=== PATIENT | male | born 1945 | race Caucasian/White ===

== ENCOUNTER → 2018-01-20 09:32 | Outpatient (CLI) | payer MEDICARE, SELFPAY | PROVIDERS: Family Provider Preventive Medicine Occupational Medicine; PCP Preventive Medicine Occupational Medicine; Visit Provider Nurse Practitioner Adult Health | DX: R97.20 Elevated prostate specific antigen [PSA] (principal) | CPT/HCPCS: 36415; 84153 ==

== ENCOUNTER → 2021-02-04 14:16 | Outpatient (CLI) | payer MEDICARE, SELFPAY | PROVIDERS: PCP Preventive Medicine Occupational Medicine; Referring Provider Urology; Visit Provider Urology | DX: R97.20 Elevated prostate specific antigen [PSA] (principal) | CPT/HCPCS: 36415; 84153 ==

== ENCOUNTER 2021-03-26 05:52 | Day surgery (SDC) | payer MEDICARE, SELFPAY ==
--- NOTE | 2021-03-19 12:00 | EKG12_ITS ---
Test Reason : PRE OP Blood Pressure : / mmHG Vent. Rate : 060 BPM Atrial Rate : 060 BPM P-R Int : 170 ms QRS Dur : 076 ms QT Int : 408 ms P-R-T Axes : 037 038 028 degrees QTc Int : 408 ms Normal sinus rhythm Normal ECG Confirmed by MANINDER AGOSTO, KLEBER ([id number]), script editor SUMA DANIELS ([id number]) on 03/20/2021 9:25:07 AM Referred By: David Ramos Confirmed By:KLEBER DICKENS MD
[2021-03-19 14:27] LABS: Anion Gap 5 (5-15); BUN 18 mg/dL (7-18); BUN/Creat Ratio 16.7 RATIO (10-20); Calcium,Total 10.4 mg/dL (8.5-10.1); Chloride 112 mmol/L (98-107); Creatinine, Serum 1.08 mg/dL (0.70-1.30); EST Glomerular Filtration Rate 71 mL/min (>60); Est Glom Filt Rate - Afr Amer 86 mL/min (>60); Glucose 107 mg/dL (74-106); Potassium 3.6 mmol/L (3.5-5.1); Sodium Level 143 mmol/L (136-145)
[2021-03-26] VITALS (14 sets, daily range): BP systolic 103–145; BP diastolic 48–89; PULSE 56–67; RESP 10–18; TEMP 36.2–37.4; O2SAT 85–97; BMI 34.7
--- NOTE | 2021-03-26 | IMM_PTH ---
PATIENT: GARRY MONTIEL LOC: [facility] – [place] U#:[id number] AGE/SX: 76/M ROOM: RE03/26/[address]: Dr. David Ramos MD : 1945 BED: DIS: 03/27/2021 SPEC #: [id number] RECD: 03/28/21 13:37 STATUS: DOUG REQ #: [id number] ANNA: 03/26/21 00:[address]: David Ramos DEPT: IMMUNOHISTOCHEMISTRY RECD BY: Hamida Garzon ENTERED: 03/28/21 13:39 SP TYPE: IMMUNO OTHR DR: Dr. Mich Zacarias DO Tissues: Prostate, NOS Procedures: 34BE12 (add) P40 (add) 34BE12 (initial) PHYSICIAN & INSTITUTION [place] [id number] SPECIMEN INFORMATION: Tissue Source: Prostate tissue Clinical Info: Benign prostate hyperplasia, bladder carcinoma Specimen Number: [id number], 3 and 9 CPT code: 96732 METHODOLOGY: Deparaffinized sections of prefer/formalin-fixed tissue or PAP/DQ stained slides are incubated with monoclonal/polyclonal antibodies/oligonucleotide probes. Localization is made via biotin free immunoperoxidase method. Appropriate controls are performed and reacted as expected. Results on target cell population are indicated in the following table: RESULTS: ANTIBODY / CLONE RESULT Block 3 P40 (BC28) positive 34BE12 (34BE12) positive Filemon 9 P40 (BC28) positive 34BE12 (34BE12) positive These tests were developed and their performance characteristics determined by [facility]. They may not have been cleared or approved by the U.S. Food and Drug Administration. The FDA has determined that such clearance or approval is not necessary. The above immunohistochemical/dualISH markers are ordered and reviewed by the Pathologist. INTERPRETATION: Prostate tissue, TUR: -Benign prostatic hyperplasia -Negative for malignancy SJ:gabi 03/31/21
[2021-03-26] MEDS: Lactated Ringers 1,000 ML 15 ML IV ×2 (06:20→10:35)
[2021-03-26] MEDS: Ciprofloxacin 400 MG/200 ML BAG 200 MG IV (06:38)
--- NOTE | 2021-03-26 07:30 | PROS_PTH ---
PATIENT: GARRY MONTIEL LOC: [facility] – [place] U#:[id number] AGE/SX: 76/M ROOM: RE03/26/[address]: Dr. David Ramos MD : 1945 BED: DIS: 03/27/2021 SPEC #: [id number] RECD: 03/26/21 10:28 STATUS: DOUG CRUZ #: [id number] ANNA: 03/26/21 07:[address]: David Ramos DEPT: SURGICAL PATHOLOGY RECD BY: Raiza Ramirez ENTERED: 03/26/21 10:46 SP TYPE: TURP OTHR DR: Dr. Mich Zacarias, DO Tissues: Prostate, NOS Procedures: Surgery Specimen Level IV HEADER OPERATION: Cystoscopy, transurethral resection of the prostate PRE-OP DIAGNOSIS: Benign prostate hyperplasia, bladder calculus TISSUE SUBMITTED: Prostate tissue and bladder stone MICROSCOPIC DIAGNOSIS Prostate tissue and bladder stone, TUR: Benign prostatic hyperplasia, glandular and stromal type. Focal chronic inflammation and basal cell hyperplasia. Fragments of stones (gross only). See comment. Jass 03/31/21 COMMENT Immunohistochemistry ([id number]) supports the above diagnosis. MICROSCOPIC DESCRIPTION Slides are reviewed. GROSS DESCRIPTION Received is one container labeled with the patient's name and designated prostate tissue. The specimen consists of multiple irregular fragments of pink-hinkle, rubbery, soft tissue that in aggregate weigh 20.7 gm and measure in aggregate 7.0 x 7.0 x 3.0 cm. A few fragments of stones are also noted. Plasma Table Operator tissue is submitted in ten cassettes. /JASS:gabi 03/26/21 TC:5 [facility]: [id number]
[2021-03-26] MEDS: Lactated Ringers 1,000 ML 100 ML IV (08:30)
--- NOTE | 2021-03-26 09:37 | PCM.HP.STD ---
HPI - General HPI Narrative GARRY MONTIEL, is a 76 M who presents with large bladder stones and bph with obsruction, plan today to laser stones and do a TURP FORMERLY [facility], [facility] Medical History (Updated 03/19/21 @ 10:24 by Cori Kingsley) Ambulates with cane Bladder disease Gastric reflux Gout High cholesterol Hypertension Leg cramps Non-smoker Prostate disease Wears dentures Wears glasses Home Medications amlodipine 10 mg PO DAILY 03/19/21 [History Last Taken Unknown] atorvastatin 20 mg PO DAILY 03/19/21 [History Last Taken Unknown] losartan 100 mg PO DAILY 03/19/21 [History Last Taken Unknown] metoprolol succinate 100 mg PO BID 03/19/21 [History Last Taken Unknown] omeprazole 40 mg PO DAILY 03/19/21 [History Last Taken Unknown] ciprofloxacin HCl [Cipro] 500 mg PO BID #14 tab 03/26/21 [Rx Last Taken Unknown] Allergy/AdvReac Type Severity Reaction Status Date / Time Penicillins [PCN] Allergy Other Verified 03/19/21 10:11 Surgical History (Updated 03/19/21 @ 10:24 by Cori Kingsley) History of back surgery History of knee surgery Social History Smoking Status: Never smoker Vital Signs Vital Signs Vital Signs: 03/26/21 06:34 Temperature 99.3 F H Temperature Source Temporal Pulse Rate 67 Respiratory Rate 16 Respiratory Pattern Normal Blood Pressure 145/89 H Blood Pressure Mean 107 Blood Pressure Source Monitor Blood Pressure Position Semi-Fowlers Blood Pressure Location Right Arm Pulse Ox 93 Oxygen Delivery Method Room Air Weight Weight: 100.7 kg Body Mass Index (BMI) 34.7 Results Lab / Micro Data Result Diagrams: 03/19/21 12:40 03/19/21 12:40
--- NOTE | 2021-03-26 09:37 | PCM.DC ---
Discharge Instructions Diet Discharge Diet: No restrictions Activity Discharge Activity: Return to Normal Activity and May Not Drive (while taking narcotic pain medications.) Dressing / Incision Call your doctor if you observe: Fever of 101 or Higher Follow Up Care Please Follow Up With: David Ramos MD When: Call [phone] for an appointment Test Results: Test results from this visit will be discussed in further detail at your follow-up appointment, if applicable. Discharge Plan Admission Primary Reason for Your Visit: laser bladder stones and TURP Attending Provider: David Ramos Primary Care Provider: Mich Zacarias Instructions Patient Instructions: TURP Home Recovery Discharge Orders/Prescriptions Prescriptions: New ciprofloxacin HCl [Cipro] 500 mg tablet 500 mg PO BID Qty: 14 RF: 0 Continued atorvastatin 20 mg Tablet 20 mg PO DAILY RF: 0 metoprolol succinate 100 mg Tablet Extended Release 24 Hr 100 mg PO BID RF: 0 omeprazole 40 mg Capsule,Delayed Release(Dr/Ec) 40 mg PO DAILY RF: 0 amlodipine 10 mg Tablet 10 mg PO DAILY RF: 0 losartan 100 mg Tablet 100 mg PO DAILY RF: 0 Discontinued oxybutynin chloride 5 mg Tablet 5 mg PO DAILY RF: 0 aspirin 81 mg Capsule 81 mg PO DAILY RF: 0 Other Ambulatory Orders: 12 Lead EKG (Routine) Timeframe: [id number] Location: None Selected Ordered By: Dr. Jack Mcnally Referrals / Follow Up: David Ramos MD [STAFF PHYSICIAN] - Mich Zacarias DO [Primary Care Provider] - Disposition Disposition (needs filled in before D/C Order can be placed): Home, Self Care
--- NOTE | 2021-03-26 09:38 | OP.PCM_ITS ---
Report of Operation Date of Procedure: 03/26/21 Pre-Operative Diagnosis: Large bladder stones and BPH with obstruction Post-Operative Diagnosis: Same Surgery/Procedure Performed:: Cystolitholapaxy and removal of large bladder stones greater than 2.5 cm in size and transurethral resection of the prostate9 Description of Surgical Findings:: In the preoperative setting I discussed with the patient how the surgery would be done with expect afterwards. We discussed how a prostate resection is done and we discussed the risk of the surgery including, bleeding, infection, retrograde ejaculation, changes with ejaculation or intercourse,. We discussed the possibility that the resection of the prostate may not alleviate his urinary symptoms. We discussed the small risk of developing scar tissue along the urethral channel and strictures. We also discussed the chance of the prostate could grow back and he may need further surgery or treatment in the future for prostate problems. Patient was taken back to the operating room, timeout procedure was performed, he was identified and marked and placed on the operating room table. He underwent general anesthesia.The urethra and genitals were prepped and draped in usual sterile fashion. Went into the bladder using a 24 [place] cystoscope. We used the laser bridge through the scope for continuous irrigation. Then using the laser bridge we introduced a laser fiber into the bladder and the stone in the bladder was trapped against the back wall. The stone measured larger than 2,5cm in total size. The stone was then lasered using laser lithotripsy the small little pieces all the pieces were evacuated on the bladder. After all the stones were removed then the scope was removed there was minimal bleeding. I then went back in to the bladder with the visual obturator with a resectoscope. Once inside the bladder identified the right and left ureteral orifice. I then identified the prostate and the anatomy of the prostate. I marked out the area of the sphincter and the verumontanum was identified. I then proceeded with the prostate resection first resected the median lobe. And then resected the right lobe of the prostate. Then to resect the left lobe of the prostate. I then resected the apical tissue of the prostate. This was a complete resection of all obstructive tissue to improve voiding and relieve obstruction. I then made sure that there was no injury to the sphincter or the verumontanum was still intact. At the end of the resection all the chips were Ellik out of the bladder. I then identified the left and right ureteral orifice and these were confirmed to be in good position and effluxing and not injured. The resectoscope was removed, a 22 [place]se catheter was placed into the bladder on continuous irrigation. And the urine was fairly light pink color and draining normally. He was taken back to the PACU in good condition. CPT 57257 CPT 18925 Surgeon: beto Type of Anesthesia: General Drains: 22fr [address] Admit VTE Documentation VTE Present on Admission: No VTE Mechan Device Prophylaxis: SCD's VTE Pharm Prophylaxis ordered?: No
--- NOTE | 2021-03-26 18:55 | PCS.PANDOC ---
PANDEMIC DOCUMENTATION INITIATED: Date: 12/16/2020 Time: 190
[2021-03-26] MEDS: Metoprolol(XL)Succ 100 MG Tablet PO (22:12)
[2021-03-26] MEDS: Ciprofloxacin 500 MG Tablet PO (22:12)
[2021-03-26] MEDS: Atorvastatin Calcium 20 MG Tablet PO (22:12)
[2021-03-27 00:39] VITALS: BP 122/61; PULSE 72; RESP 18; TEMP 36.7; O2SAT 93
[2021-03-27] MEDS: Acetaminophen 325 MG Tablet 650 MG PO (01:08)
[2021-03-27 04:00] VITALS: BP 122/58; PULSE 62; RESP 18; TEMP 36.6; O2SAT 93
[2021-03-27 10:45] VITALS: BP 127/69; PULSE 69; RESP 18; TEMP 36.7; O2SAT 95
[2021-03-27 10:50] VITALS: PULSE 69
[2021-03-27] MEDS: Metoprolol(XL)Succ 100 MG Tablet PO (10:50)
[2021-03-27] MEDS: amLODIPine 10 MG Tablet PO (10:50)
[2021-03-27] MEDS: Ciprofloxacin 500 MG Tablet PO (10:50)
[2021-03-27] MEDS: Pantoprazole Sodium 40 MG Tablet PO (10:50)
[2021-03-27] MEDS: Losartan Potassium 100 MG Tablet PO (10:50)
[2021-03-27 13:47] VITALS: BP 126/74; PULSE 65; RESP 18; TEMP 36.6; O2SAT 96
--- NOTE | 2021-03-27 15:29 | NURSING ---
phoned pt friend Kasandra per pt request to inform of discharge, states she will be here in about 30 minutes or so.
== END 2021-03-27 16:30 | disposition home or self-care (01) ==
LOC: SDC 05:53 → AC 05:53 → MS3 03-27 14:00
PROVIDERS: Anesthesiology; PCP Preventive Medicine Occupational Medicine; Referring Provider Urology; Visit Provider Urology
PROC: (CPT 52318; principal; 2021-03-26 07:20)
DX: N21.0 Calculus in bladder (principal); N40.1 Benign prostatic hyperplasia with lower urinary tract symptoms; N13.8 Other obstructive and reflux uropathy; I10 Essential (primary) hypertension; E78.00 Pure hypercholesterolemia, unspecified; K21.9 Gastro-esophageal reflux disease without esophagitis; Z79.82 Long term (current) use of aspirin; Z79.899 Other long term (current) drug therapy; Z23 Encounter for immunization
CPT/HCPCS: 52318; 52601; 36415; 80048; 88305; 88341; 88342; 93005; G0008; J7120; 90686; J0744; J2405

== ENCOUNTER → 2022-08-24 | Outpatient (CLI) | payer MEDICARE, SELFPAY ==
[2022-08-24 12:52] LABS: PTHIN 147.5 pg/mL (18.4-80.1)
[2022-08-24 12:55] LABS: Vitamin D,25 Hydroxy 61.6 ng/mL
[2022-08-24 13:03] LABS: Calcium,Total 10.9 mg/dL (8.5-10.1)
== END | disposition home or self-care (01) ==
LOC: LAB 11:46
PROVIDERS: Internal Medicine Endocrinology, Diabetes & Metabolism; PCP Preventive Medicine Occupational Medicine; Referring Provider Registered Nurse; Visit Provider Registered Nurse
DX: R97.20 Elevated prostate specific antigen [PSA] (principal); E21.1 Secondary hyperparathyroidism, not elsewhere classified; E55.9 Vitamin D deficiency, unspecified
CPT/HCPCS: 36415; 82306; 82310; 83970; 84153

== ENCOUNTER → 2022-09-14 | Outpatient (CLI) | payer MEDICARE, SELFPAY ==
--- NOTE | 2022-09-14 | IMM_PTH ---
PATIENT: GARRY MONTIEL LOC: [facility] U#:[id number] AGE/SX: 77/M ROOM: RE09/14/[address]: Dr. David Ramos MD : 1945 BED: DIS: 09/14/2022 SPEC #: [id number] RECD: 09/16/22 13:15 STATUS: DOUG REQ #: [id number] ANNA: 09/14/22 00:[address]: David Ramos DEPT: IMMUNOHISTOCHEMISTRY RECD BY: Carey Painting ENTERED: 09/16/22 13:16 SP TYPE: IMMUNO OTHR DR: Dr. Mich Zacarias DO Tissues: A - PROSTATE RIGHT B - PROSTATE RIGHT Procedures: 34BE12 (add) P40 (add) 34BE12 (initial) PHYSICIAN & INSTITUTION [place] [id number] SPECIMEN INFORMATION: Tissue Source: A - Right prostate, apex, core biopsy, B - Right prostate, mid, core biopsy Clinical Info: Elevated PSA Specimen Number: [id number] A & B CPT code: 44693, 01589 x3 METHODOLOGY: Deparaffinized sections of prefer/formalin-fixed tissue or PAP/DQ stained slides are incubated with monoclonal/polyclonal antibodies/oligonucleotide probes. Localization is made via biotin free immunoperoxidase method. Appropriate controls are performed and reacted as expected. Results on target cell population are indicated in the following table: RESULTS: ANTIBODY / CLONE RESULT Block A P40 (BC28) negative 34BE12 (34BE12) negative Block B P40 (BC28) negative 34BE12 (34BE12) negative These tests were developed and their performance characteristics determined by [facility]. They may not have been cleared or approved by the U.S. Food and Drug Administration. The FDA has determined that such clearance or approval is not necessary. The above immunohistochemical/dualISH markers are ordered and reviewed by the Pathologist. INTERPRETATION: A. Right prostate, apex, core biopsy: Adenocarcinoma. B. Right prostate, mid, core biopsy: Adenocarcinoma. JASS:latoya 09/17/2022
--- NOTE | 2022-09-14 08:00 | PROSBIL_PTH ---
PATIENT: GARRY MONTIEL LOC: [facility] U#:[id number] AGE/SX: 77/M ROOM: RE09/14/[address]: Dr. David Ramos MD : 1945 BED: DIS: 09/14/2022 SPEC #: [id number] RECD: 09/14/22 16:10 STATUS: DOUG REMartin #: [id number] ANNA: 09/14/22 08:[address]: David Ramos DEPT: SURGICAL PATHOLOGY RECD BY: Hamida Garzon ENTERED: 09/15/22 07:09 SP TYPE: PROST BX SHILPA DR: Dr. Mich Zacarias DO Tissues: A - PROSTATE RIGHT B - PROSTATE RIGHT C - PROSTATE RIGHT D - PROSTATE LEFT E - PROSTATE LEFT F - PROSTATE LEFT Procedures: PROSTATE BX HEADER OPERATION: Prostate biopsy PRE-OP DIAGNOSIS: Elevated PSA TISSUE SUBMITTED: A - Right apex, B - Right mid, C - Right base, D - Left apex, E - Left mid, F - Left base MICROSCOPIC DIAGNOSIS A. Right prostate, apex, core biopsy: Prostatic adenocarcinoma. Ramon grade: 3+3=6 Number of cores involved: 2/2 Proportion of tissue involved: ~10% Perineural invasion: Present, focal. Greatest tumor length: 0.7 cm, discontinuous Chronic inflammation. See comment. B. Right prostate, mid, core biopsy: Prostatic adenocarcinoma. Olin grade: 3+3=6 Number of cores involved: 1/2 Proportion of tissue involved: <5% Perineural invasion: Not identified. Greatest tumor length: 0.1 cm Acute and chronic inflammation. Focal high-grade prostatic intraepithelial neoplasia (HGPIN). See comment. C. Right prostate, base, core biopsy: Prostatic adenocarcinoma. Olin grade: 3+3=6 Number of cores involved: 2/2 Proportion of tissue involved: ~30% Perineural invasion: Present, focal. Greatest tumor length: 0.4 cm Chronic inflammation. D. Left prostate, apex, core biopsy: Prostatic adenocarcinoma. Ramon grade: 3+4=7 Number of cores involved: 2/2 Proportion of tissue involved: ~25% Perineural invasion: Present, frequent. Greatest tumor length: 0.4 cm E. Left prostate, mid, core biopsy: Prostatic adenocarcinoma. Ramon grade: 3+3=6 Number of cores involved: 1/1 Proportion of tissue involved: ~75% Perineural invasion: Not identified. Greatest tumor length: 0.8 cm Chronic inflammation. F. Left prostate, base, core biopsy: Prostatic adenocarcinoma. Olin grade: 3+4=7 Number of cores involved: 2/2 Proportion of tissue involved: ~75% Perineural invasion: Present, focal. Greatest tumor length: 0.9 cm SJ:latoya 09/16/2022 COMMENT A & B. Immunohistochemistry ([id number]) supports the above diagnosis. Case has been reviewed in consultation with Dr. Chisholm who concurs with the above diagnosis. IDC:AM MICROSCOPIC DESCRIPTION Slides are reviewed. GROSS DESCRIPTION A - Received is one container designated prostate, right apex. The specimen consists of two elongated fragments of light hinkle-white soft tissue each measuring 1.0 cm in length and 0.1 cm in diameter. The specimen is totally submitted in one cassette. B - Received is one container designated prostate, right mid. The specimen consists of two elongated fragments of light hinkle-white soft tissue each measuring 1.5 cm in length and 0.1 cm in diameter. The specimen is totally submitted in one cassette. C - Received is one container designated prostate, right base. The specimen consists of two elongated fragments of light hinkle-white soft tissue each measuring 1.0 cm in length and 0.1 cm in diameter. The specimen is totally submitted in one cassette. D - Received is one container designated prostate, left apex. The specimen consists of two elongated fragments of light hinkle-white soft tissue each measuring 1.5 cm in length and 0.1 cm in diameter. The specimen is totally submitted in one cassette. E - Received is one container designated prostate, left mid. The specimen consists of one elongated fragment of light hinkle-white soft tissue measuring 1.5 cm in length and 0.1 cm in diameter. The specimen is totally submitted in one cassette. F - Received is one container designated prostate, left base. The specimen consists of two elongated fragments of light hinkle-white soft tissue each measuring 1.5 cm in length and 0.1 cm in diameter. The specimen is totally submitted in one cassette. / AM:latoya 09/15/2022 TC:0 CPT: G0146
== END | disposition home or self-care (01) ==
LOC: LABSPEC 16:14
PROVIDERS: PCP Preventive Medicine Occupational Medicine; Referring Provider Urology; Visit Provider Urology
DX: R97.20 Elevated prostate specific antigen [PSA] (principal)
CPT/HCPCS: 88305; 88341; 88342; G0416

== ENCOUNTER → 2022-09-30 | Outpatient (CLI) | payer MEDICARE, SELFPAY ==
--- NOTE | 2022-09-30 09:53 | NM_ITS ---
CLINICAL: 77-year-old male with history of clinical hyperparathyroidism. 99m Tc SESTAMIBI DUAL PHASE PARATHYROID SCINTIGRAPHY COMPARISON: None available FINDINGS: Following the intravenous administration of 27.0 mCi of 99m Tc sestamibi, image acquisitions of the anterior neck at approximately 15 minutes and 3.0 hours post radiopharmaceutical provision reveal: 1. Immediate static blood pool acquisitions demonstrate homogeneous-uniform radiopharmaceutical concentration defined in the right-left thyroid colloid. 2. Delayed images depict symmetric incomplete washout of the radiotracer from the previously identified right-left thyroid beds. Focal retention of the radiopharmaceutical is not demonstrated.. NM/Parathyroid Scan IMPRESSION: 1. NEGATIVE 99m Tc SESTAMIBI PARATHYROID IMAGING DUAL PHASE EXAMINATION. 2. There is no definitive scintigraphic evidence of parathyroid adenoma on the current evaluation. Electronically Signed: Jon Ramirez, at 22:05 EDT ,
== END | disposition home or self-care (01) ==
LOC: NM 09:50
PROVIDERS: PCP Preventive Medicine Occupational Medicine; Referring Provider Internal Medicine Endocrinology, Diabetes & Metabolism; Visit Provider Internal Medicine Endocrinology, Diabetes & Metabolism
DX: E21.0 Primary hyperparathyroidism (principal)
CPT/HCPCS: 78070; A9500

== ENCOUNTER → 2022-10-20 | Outpatient (CLI) | payer MEDICARE, SELFPAY ==
--- NOTE | 2022-10-20 09:37 | NM_ITS ---
CLINICAL: 77-year-old male with history of at high risk for prostate carcinoma. WHOLE BODY 99m Tc MDP RADIONUCLIDE BONE SCINTIGRAPHY COMPARISON: None available FINDINGS: Following the intravenous administration of 27.0 mCi of 99m Tc MDP, whole body bone images reveal: 1. Increased radiopharmaceutical concentration is defined in the mid cervical spine posteriorly on the right, the acromioclavicular and sternoclavicular compartments of both shoulders, the glenohumeral compartment of the left shoulder, the ninth-10th thoracic vertebra posteriorly on the right, the posterior sacrum, bilateral knee articulations, the ankles bilaterally. 2. The remaining skeletal structures are scintigraphically unremarkable with normal-appearing renal images and urinary bladder activity identified. There is calcification of the bilateral costochondral junction. NM/Bone Scan Whole Body IMPRESSION: 1. The increase in radiopharmaceutical concentration defined in the cervical and thoracic spine, sacrum, shoulders bilaterally, the right height left knee articulations, both ankles is commensurate with the presence of degenerative arthrosis. 2. There is no definitive scintigraphic evidence of diffuse axial skeletal metastatic disease on the current examination. Electronically Signed: Jon Ramirez, at 12:42 EDT ,
== END | disposition home or self-care (01) ==
LOC: NM 09:27
PROVIDERS: PCP Preventive Medicine Occupational Medicine; Referring Provider Student in an Organized Health Care Education/Training Program; Visit Provider Student in an Organized Health Care Education/Training Program
DX: C61 Malignant neoplasm of prostate (principal)
CPT/HCPCS: 78306; A9503

== ENCOUNTER → 2022-10-26 | Outpatient (CLI) | payer MEDICARE, SELFPAY ==
--- NOTE | 2022-10-26 14:24 | CT_ITS ---
STUDY: CT ABDOMEN AND PELVIS WITH CONTRAST REASON FOR EXAM: Male, 77 years old. Recent diagnosis of prostate cancer. Staging examination. RADIATION DOSAGE (If Supplied By Facility): CTDIvol = ( 12.87 ) mGy, DLP = ( 1199.08 ) mGycm TECHNIQUE: Transaxial images were obtained from the dome of the diaphragm to the symphysis pubis without oral contrast. IV 100mL Isovue-300 was administered. Sagittal and coronal images were reconstructed. Individualized dose optimization techniques were used for this CT. COMPARISON: None. FINDINGS: Mild degree of increased markings at the lung bases suggests a mild degree of bibasilar atelectasis. The visualized portions of the heart are within normal limits. There is a 1.1 cm x 1 cm cyst in the central portion of the right lobe of the liver. Small cysts are also seen in the left lobe. The largest measures 1.8 cm. Normal gallbladder and extrahepatic biliary system. Normal spleen. Normal pancreas. Normal bilateral adrenal glands. There is a 1.8 cm x 1.8 cm cyst in the upper medial aspect of the right kidney. There is also evidence of a 9 mm cyst in the posterior aspect of the upper pole of the right kidney. Scattered cysts are seen along the mid and distal portion of the right kidney. 1.7 cm cyst in the anterior medial portion of the left kidney. Dominant cyst is seen in the lower pole of the left kidney measuring 3.6 cm x 3.4 cm. 4 mm nonobstructive calculus is seen in the lower pole calyx of the left kidney. Normal visualized stomach. Normal small intestine. There are multiple colonic diverticula consistent with diverticulosis. The appendix is visualized and appears normal. There is scattered atherosclerotic calcification of the abdominal aorta, without a demonstrated aneurysm. Normal inferior vena cava. Normal retroperitoneum. The urinary bladder is not completely distended although there is evidence of a mild degree of bladder wall thickening. Heterogeneous enlargement of the prostate with indentation at the bladder base. The prostate measures 5.8 cm x 4.9 cm. Findings are suggestive of prior TURP. Moderate-sized left inguinal hernia containing fat. Small right inguinal hernia containing fat. Prior fusion at the L4-L5 and L3-L4 levels. Grade 2 anterolisthesis of L4 on L5. CT/Abdomen/Pelvis WITH Contrast IMPRESSION: Heterogeneous enlargement of the prostate with indentation of the bladder base. Mild degree of bladder wall thickening. Moderate sized left inguinal hernia containing fat. Small right inguinal hernia containing fat. Bilateral renal cysts as well as hepatic cysts. Electronically Signed: Greg Wilder MD at 10:35 EDT ,
[2022-10-26 14:54] LABS: CREATININE FINGERSTICK 1.1 mg/dL (0.70-1.30); EGFR FINGERSTICK > 60.0000 mL/min (>60)
== END | disposition home or self-care (01) ==
LOC: CT 14:20
PROVIDERS: PCP Preventive Medicine Occupational Medicine; Referring Provider Student in an Organized Health Care Education/Training Program; Visit Provider Student in an Organized Health Care Education/Training Program
DX: C61 Malignant neoplasm of prostate (principal)
CPT/HCPCS: 74177; Q9967

== ENCOUNTER 2022-11-20 07:59 | Day surgery (SDC) | payer MEDICARE, SELFPAY ==
[2022-11-20 08:32] VITALS: BP 150/70; PULSE 64; RESP 18; TEMP 37.1; O2SAT 95; BMI 35.1
[2022-11-20] MEDS: Lactated Ringers 1,000 ML 15 ML IV (08:37)
--- NOTE | 2022-11-20 10:00 | PCM.HP.STD ---
[facility] - General General Date of Service: 11/20/22 Chief Complaint: Prostate cancer [facility] Narrative GARRY MONTIEL, is a 77 M who presents for placement of gold markers and spacer gel for prostate cancer and rate for radiation planning. [facility] Medical History (Updated 11/16/22 @ 09:09 by Florence Laboy) Ambulates with cane Anxiety Arthritis Back pain Bladder disease BPH (benign prostatic hyperplasia) Cancer Elevated PSA Former smoker Gastric reflux Gout High cholesterol Hypertension Leg cramps Low iron Malignant melanoma of skin Nocturia Non-smoker Primary hyperparathyroidism Syncope Urinary urgency Vertigo Vitamin D deficiency Wears dentures Wears glasses Home Medications amlodipine 10 mg tablet 10 mg PO DAILY 03/19/21 [History Last Taken 11/20/22] atorvastatin 20 mg tablet 20 mg PO QHS 03/19/21 [History Last Taken Unknown] losartan 100 mg tablet 100 mg PO DAILY 03/19/21 [History Last Taken 11/20/22] metoprolol succinate 100 mg tablet,extended release 24 hr 100 mg PO BID 03/19/21 [History Last Taken 11/20/22] omeprazole 40 mg capsule,delayed release 40 mg PO DAILY 03/19/21 [History Last Taken 11/20/22] oxybutynin chloride 5 mg tablet 5 mg PO DAILY 06/01/22 [History Last Taken 11/20/22] cholecalciferol (vitamin D3) 1,250 mcg (50,000 unit) capsule 1,250 mcg PO QWEEK #12 caps 07/13/22 [Rx Last Taken Unknown] ciprofloxacin HCl 500 mg tablet (Cipro) 500 mg PO BID #14 tabs 11/20/22 [Rx Last Taken Unknown] Allergy/AdvReac Type Severity Reaction Status Date / Time Penicillins [PCN] Allergy Other Verified 11/20/22 08:31 Surgical History (Updated 11/16/22 @ 09:09 by Florence Laboy) History of back surgery History of knee surgery S/P TURP (status post transurethral resection of prostate) Social History Smoking Status: Former smoker alcohol intake: former substance use type: does not use what type of physical activity do you participate in: none Vital Signs Vital Signs Vital Signs: 11/20/22 08:32 11/20/22 08:32 Temperature 98.7 F Temperature Source Temporal Pulse Rate 64 Respiratory Rate 18 Respiratory Pattern Normal Blood Pressure 150/70 H Blood Pressure Mean 96 Blood Pressure Source Monitor Blood Pressure Position Semi-Fowlers Blood Pressure Location Left Arm Pulse Ox 95 Oxygen Delivery Method Room Air Weight Weight: 101.8 kg Body Mass Index (BMI) 35.1
--- NOTE | 2022-11-20 10:01 | DCINST_ITS ---
Discharge Instructions Diet Discharge Diet: No restrictions Activity Discharge Activity: Return to Normal Activity Follow Up Care Please Follow Up With: David Ramos MD When: Keep appointment for next hormone deprivation therapy injection Test Results: Test results from this visit will be discussed in further detail at your follow- up appointment, if applicable. Discharge Plan Admission Primary Reason for Your Visit: prostate cancer Attending Provider: David Ramos Primary Care Provider: Mich Zacarias Discharge Orders/Prescriptions Prescriptions: New ciprofloxacin HCl [Cipro] 500 mg tablet 500 mg PO BID Qty: 14 0RF Continued cholecalciferol (vitamin D3) 1,250 mcg (50,000 unit) capsule 1,250 mcg PO QWEEK Qty: 12 0RF oxybutynin chloride 5 mg tablet 5 mg PO DAILY atorvastatin 20 mg Tablet 20 mg PO QHS metoprolol succinate 100 mg Tablet Extended Release 24 Hr 100 mg PO BID omeprazole 40 mg Capsule,Delayed Release(Dr/Ec) 40 mg PO DAILY amlodipine 10 mg Tablet 10 mg PO DAILY losartan 100 mg Tablet 100 mg PO DAILY Referrals / Follow Up: David Ramos MD [Med Staff - Active Staff] - Mich Zacarias DO [Primary Care Provider] - Disposition Disposition (needs filled in before D/C Order can be placed): Home, Self Care
[2022-11-20] MEDS: Cefazolin 2 GM in 0.9% Normal Saline 100 ML IV (10:19)
--- NOTE | 2022-11-20 10:29 | PCM.OPRPT ---
Report of Operation Date of Procedure: 11/20/22 Pre-Operative Diagnosis: Prostate cancer Post-Operative Diagnosis: The same Surgery/Procedure Performed:: Placement of gold markers and prostate and also placement of spacer gel between the rectum and the prostate Description of Surgical Findings:: Patient was taken back to the operating room at the smooth induction of general anesthesia he was placed in dorsolithotomy position with the legs up high in stirrups. The penis and testicles and perineum were prepped and draped in usual sterile fashion. A biplanar ultrasound probe was placed into the rectum I could ultrasonography of the prostate was then performed identify the landmarks of the prostate the seminal vesicles the base the apex of the prostate we then guided 3 gold markers into the prostate in the mid prostate 3 gold markers were placed on the right and the left and also towards the apex of the prostate using the turret punch press operator kit. After the gold markers were placed then I guided the needle through the perineum quite a very large patient and is very difficult to get the needle through the perineum but then got the guided the needle between the perineum and the prostate and the rectum once I got this space that identified a injected injectable saline into the space there was a separation between the rectum and the prostate and as I was in the space I then injected the spacer gel the spacer gel have been prepared in the back table per dialysis social worker's instructions. After the gel was injected there was some separation but not as is nice separation as usual but there was a some separation between the rectum and the prostate but once the gel was injected I could not see any more on ultrasound because the gel causes blurring of the vision so I decided not to do another injection and just have to proceed with the injection was given since the separation was minor but could not do another injection at this point patient acetic was reversed and he was taken back to PACU in good condition. Surgeon: David Ramos Type of Anesthesia: General Admit VTE Documentation VTE Present on Admission: No VTE Mechan Device Prophylaxis: SCD's VTE Pharm Prophylaxis ordered?: No
[2022-11-20 10:36] VITALS: BP 150/70; BP 90/54; PULSE 53; RESP 16; TEMP 36.9; O2SAT 90
[2022-11-20 10:45] VITALS: BP 150/70; BP 93/51; PULSE 53; RESP 16; O2SAT 95
[2022-11-20 11:00] VITALS: BP 111/62; BP 150/70; PULSE 92; RESP 16; TEMP 10.5; O2SAT 94
[2022-11-20 11:16] VITALS: BP 115/68; BP 150/70; PULSE 51; RESP 16; TEMP 36.2; O2SAT 92
[2022-11-20 11:41] VITALS: BP 150/70
== END 2022-11-20 11:53 | disposition home or self-care (01) ==
LOC: SDC 08:02 → AC 08:03
PROVIDERS: PCP Preventive Medicine Occupational Medicine; Referring Provider Urology; Visit Provider Urology
PROC: (CPT 55874; principal; 2022-11-20 10:05)
DX: C61 Malignant neoplasm of prostate (principal); E55.9 Vitamin D deficiency, unspecified; K21.9 Gastro-esophageal reflux disease without esophagitis; I10 Essential (primary) hypertension; Z87.891 Personal history of nicotine dependence; Z79.899 Other long term (current) drug therapy
CPT/HCPCS: 55876; J7120; J2405

== ENCOUNTER → 2022-11-25 | Outpatient (CLI) | payer MEDICARE, SELFPAY ==
--- NOTE | 2022-11-25 12:57 | MRI_ITS ---
MR Pelvis WO/W Contrast 11/25/2022 1:19 PM COMPARISON: None CLINICAL HISTORY: 77 yo man with prostate cancer. TECHNIQUE: Axial T1-weighted and high-resolution axial T2-weighted MR images of the pelvis were obtained. ADC map and diffusion restriction images were also obtained as well as postcontrast images before and after administration of 20 cc of IV Clariscan.Images were acquired for planning of radiation therapy. DISCUSSION: MR imaging scan done for planning of radiation therapy of prostate cancer. Heterogeneous appearance of the gland is at least in part due to the known prostate cancer, as well as being consistent with benign prostatic hyperplasia. There is an approximately 3.1 x 2.5 x 2.7 cm moderately T2 dark margin the masslike lesion in the left posterior and posterolateral peripheral zone from apex to mid gland. The tumor also involves part of the right posterior peripheral zone near apex and the left posterior transitional zone between mid gland and apex. It is moderately bright on DWI and very dark on ADC map. Post contrast images are positive. This is a PI-RADS 5 lesion. There is at least 2 mm of macrocapsular extension to the left posterolaterally into the periprosthetic fat. There is likely involvement of the bilateral seminal vesicles. Suspicious left 8 mm pelvic sidewall lymph node (image 7, series 9) and 8 mm left common iliac lymph node (image 7, series 9). No bladder involvement. No bone involvement. MRI/Pelvis W/WO Contrast IMPRESSION: Approximately 3.1 x 2.5 x 2.7 cm PI-RADS 5 lesion in the left posterior and posterolateral PZ from apex to mid gland, right posterior TZ near apex and left posterior TZ between mid gland and apex. -At least 2 mm of macrocapsular extension to the left posterolaterally into the periprosthetic fat. Cannot rule out involvement of the neurovascular bundle. -Likely involvement of the bilateral seminal vesicles -Suspicious left 8 mm pelvic sidewall lymph node and 8 mm left common iliac lymph nodes. -No bladder or bone involvement. Electronically Signed: Cedrick Rock MD at 22:33 EDT ,
[2022-11-25 13:30] LABS: CREATININE FINGERSTICK 1.1 mg/dL (0.70-1.30); EGFR FINGERSTICK > 60.0000 mL/min (>60)
== END | disposition home or self-care (01) ==
LOC: MRI 12:48
PROVIDERS: PCP Preventive Medicine Occupational Medicine; Referring Provider Student in an Organized Health Care Education/Training Program; Visit Provider Student in an Organized Health Care Education/Training Program
DX: C61 Malignant neoplasm of prostate (principal)
CPT/HCPCS: 72197; 77014; 77290; A9575; Q9967

== ENCOUNTER → 2023-01-25 | Outpatient (CLI) | payer MEDICARE, SELFPAY ==
[2023-01-25 12:50] LABS: PSA,Total- Diagnostic 7.02 ng/mL (0.0-4.0)
== END | disposition home or self-care (01) ==
LOC: LAB 11:20
PROVIDERS: PCP Preventive Medicine Occupational Medicine; Referring Provider Urology; Visit Provider Urology
DX: C61 Malignant neoplasm of prostate (principal)
CPT/HCPCS: 36415; 84153

== ENCOUNTER → 2023-07-06 | Outpatient (CLI) | payer MEDICARE, SELFPAY ==
[2023-07-06 15:01] LABS: PSA,Total- Diagnostic 0.15 ng/mL (0.0-4.0)
[2023-07-06 15:08] LABS: Vitamin D,25 Hydroxy 24.5 ng/mL
[2023-07-06 15:17] LABS: PTHIN 136.4 pg/mL (18.4-80.1)
[2023-07-06 19:01] LABS: AST(SGOT) 17 U/L (15-37); Alanine Aminotransfer ALT/SGPT 19 U/L (16-61); Albumin, Serum 3.5 g/dL (3.2-5.0); Alkaline Phosphatase 90 U/L (45-117); Anion Gap 6 (5-15); BUN 18 mg/dL (7-18); BUN/Creat Ratio 14.4 RATIO (10-20); Calcium,Total 10.7 mg/dL (8.5-10.1); Chloride 112 mmol/L (98-107); Creatinine, Serum 1.25 mg/dL (0.70-1.30); EST Glomerular Filtration Rate 60 mL/min (>60); Est Glom Filt Rate - Afr Amer 72 mL/min (>60); Globulin 3.6 g/dL (2.2-4.2); Glucose 109 mg/dL (74-106); Protein, Total 7.1 g/dL (6.4-8.2); Sodium Level 143 mmol/L (136-145)
--- OUTSIDE RECORDS SUMMARY | 2023-07-06 19:04 | XMS RPT_ITS | CCD ---
Author Name Unknown Address [address] [facility] [address] [place] [address] Organization [facility] Care Team Providers Care Restrictive Preparation Operator Name Role Phone DEXTER SALGADO DO Primary Care Physician [phone] KING SURENDRA, KAYLYN Portillo Attending Unavailable DEXTER SALGADO DO Primary Care Unavailable DEXTER SALGADO DO Attending Unavailable DEXTER SALGADO DO Primary Care Unavailable DEXTER SALGADO DO Attending Unavailable DEXTER SALGADO DO Primary Care Unavailable Allergies Allergy Classification Reported Allergen(s) Allergy Type Date of Onset Reaction(s) Facility (3 sources) Penicillin; Translations: [penicillin] Drug Allergy does not remember [facility] Work Phone: Medications Current Medications Medication Drug Class(es) Dates Sig (Normalized) Sig (Original) acetaminophen 500 mg oral tablet (3 sources) Start: 07-30-2016 Tylenol 500 mg oral tablet Dose : 500 mg = 1 tab(s), Oral, q4h, PRN for pain, 0 Refill(s) Start Date: 07/30/16 Status: Ordered albuterol MDI (90 mcg/inh) CFC free inhalation aerosol (3 sources) Start: 12-06-2020 take 1 puff(s) by inhalation every four hours as needed for wheezing albuterol MDI (90 mcg/inh) CFC free inhalation aerosol 1 puff(s), Inhalation, q4h, PRN as needed for wheezing, # 8.5 gram(s), 1 Refill(s), Pharmacy: [id number], Reactive airway disease with wheezing, 170, cm, 12/06/20 10:06:00 EDT, Height, kg, 12/06/20 10:06:00 EDT, Dosing Weight Start Date: 12/06/20 Status: Ordered amLODIPine 10 mg oral tablet (3 sources) Dihydropyridine Calcium Channel Inocencio Start: 10-17-2021 End: 10-12-2022 amLODIPine 10 mg oral tablet Dose : 10 mg = 1 tab(s), Oral, qDay, # 90 tab(s), 3 Refill(s), Pharmacy: [id number], 170, cm, 10/17/21 11:28:00 EDT, Height, kg, 10/17/21 11:28:00 EDT, Dosing Weight Start Date: 10/17/21 Stop Date: 10/12/22 Status: Ordered aspirin 81 mg oral tablet (3 sources) Platelet Aggregation Inhibitor, Nonsteroidal Anti-inflammatory Drug Start: 07-30-2016 take 1 dose by mouth once daily aspirin Dose : 81 mg =, Oral, qDay, 0 Refill(s) Start Date: 07/30/16 Status: Ordered atorvastatin 20 mg oral tablet (3 sources) HMG-CoA Reductase Inhibitor Start: 10-17-2021 End: 10-12-2022 atorvastatin 20 mg oral tablet Dose : 20 mg = 1 tab(s), Oral, qDay, # 90 tab(s), 3 Refill(s), Pharmacy: [id number], 170, cm, 10/17/21 11:28:00 EDT, Height, kg, 10/17/21 11:28:00 EDT, Dosing Weight Start Date: 10/17/21 Stop Date: 10/12/22 Status: Ordered Centrum oral tablet (3 sources) Start: 09-19-2013 take 1 tablet by mouth once daily Centrum oral tablet Dose = 1 tab(s), Oral, Daily Start Date: 09/19/13 Status: Ordered losartan potassium 100 mg oral tablet (3 sources) Angiotensin 2 Receptor Inocencio Start: 10-17-2021 End: 10-12-2022 losartan 100 mg oral tablet Dose : 100 mg = 1 tab(s), Oral, qDay, # 90 tab(s), 3 Refill(s), Pharmacy: [id number], 170, cm, 10/17/21 11:28:00 EDT, Height, kg, 10/17/21 11:28:00 EDT, Dosing Weight Start Date: 10/17/21 Stop Date: 6/12/23 Status: Ordered 24 hr metoprolol succinate 100 mg extended release oral tablet (3 sources) beta-Adrenergic Inocencio Start: 10-17-2021 End: 10-12-2022 metoprolol succinate 100 mg oral TABLET extended release Dose : 100 mg = 1 tab(s), Oral, BID, # 180 tab(s), 3 Refill(s), Pharmacy: [id number], 170, cm, 10/17/21 11:28:00 EDT, Height, kg, 10/17/21 11:28:00 EDT, Dosing Weight Start Date: 10/17/21 Stop Date: 10/12/22 Status: Ordered omeprazole 40 mg delayed release oral capsule (3 sources) Proton Pump Inhibitor Start: 10-17-2021 End: 10-12-2022 omeprazole 40 mg oral delayed release capsule Dose : 40 mg = 1 cap(s), Oral, qDay, # 90 cap(s), 3 Refill(s), Pharmacy: [id number], 170, cm, 10/17/21 11:28:00 EDT, Height, kg, 10/17/21 11:28:00 EDT, Dosing Weight Start Date: 10/17/21 Stop Date: 10/12/22 Status: Ordered Problems Problem Classification Problem Date Documented Date Episodic/Chronic Asthma (3 sources) Reactive airway disease 12-06-2020 Chronic Cancer of prostate (3 sources) Malignant tumor of prostate 11-21-2018 Chronic Disorders of lipid metabolism (3 sources) Hyperlipidemia 11-29-2019 Chronic Esophageal disorders (3 sources) Gastroesophageal reflux disease 12-19-2018 Chronic Essential hypertension (3 sources) Hypertensive disorder 12-19-2018 Chronic Genitourinary symptoms and ill-defined conditions (3 sources) Urinary incontinence 12-06-2020 Chronic Genitourinary symptoms and ill-defined conditions (6 sources) Increased frequency of urination; Translations: [Urgent desire to urinate] 12-24-2020 Episodic Gout and other crystal arthropathies (3 sources) Gout 12-19-2018 Chronic Other endocrine disorders (1 source) Hyperparathyroidism 04-21-2022 Chronic Other nutritional; endocrine; and metabolic disorders (2 sources) Hypercalcemia 04-20-2022 Chronic Other screening for suspected conditions (not mental disorders or infectious disease) (3 sources) Decreased renal function 05-07-2019 Episodi c Residual codes; unclassified (3 sources) Edema of lower extremity 09-13-2019 Episodi c Residual codes; unclassified (3 sources) H/O Spinal surgery 09-19-2013 Episodic Spondylosis; intervertebral disc disorders; other back problems (3 sources) Backache 09-19-2013 Episodic Results Test Name Value Interpretation Reference Range Facil ity Encounters Encounter Date Encounter Type Care Provider Facility Start: 07-09-2022 End: 07-10-2022 ambulatory KAYLYN SERRNAO MD Facility:B Start: 07-09-2022 End: 07-09-2022 Patient encounter procedure KAYLYN SERRANO MD [facility] Start: 04-20-2022 End: 04-21-2022 ambulatory DEXTER SALGADO DO Facility:[facility] Start: 04-20-2022 End: 04-20-2022 Patient encounter procedure DEXTER SALGADO DO [facility] Start: 10-17-2021 End: 10-18-2021 ambulatory DEXTER SALGADO DO Facility:[facility] Start: 10-17-2021 End: 10-17-2021 Patient encounter procedure DEXTER SALGADO DO [facility] Procedures Date Procedure Procedure Detail Performing Clinician Arthroscopy of knee DEXTER Caty CORREIAPartha Immunizations Immunization Date Immunization Notes Care Provider Fa [facility] 03-27-2021 influenza virus vaccine, unspecified formulation DEXTER SALGADO DO [facility] 11-20-2020 tetanus toxoid, redu ann diphtheria toxoid, and acellular pertussis vaccine, adsorbed DEXTER SALGADO DO [facility] 10-01-2020 SARS-CoV-2 mRNA (tozinameran) vaccine DEXTER NAOMI ZAMORA [facility] 09-10-2020 SARS-CoV-2 mRNA (tozinameran) vaccine DEXTER SALGADO DO [facility] Payers Date Payer Category Payer Private Health Insurance [id number] 1945 Unknown [id number] 1945 Unknown [id number] 1945 Unknown [id number] Social History Date Type Detail Facility Start: 11-20-2020 Tobacco smoking status Ex-smoker (fi nding) [facility] Sex Assigned At Male [facility] Evaluation + Plan note Laboratory Note Date & Type Note Facility Evaluation + Plan note Future Appointments Appointment Date:04/20/2022 10:00:00 AM Scheduled Provider:DEXTER SALGADO DO Location:[facility] Appointment Type:PC OV Follow Up Future Scheduled TestsMicroalbumin Level Urine 10/17/21 [facility] Evaluation + Plan note Laboratory Note Date & Type Note Facility Evaluation + Plan note Future Appointments Appointment Date:10/19/2022 10:00:00 AM Scheduled Provider:DEXTER SALGADO DO Location:[facility] Appointment Type:PC OV Future Scheduled TestsMicroalbumin Level Urine 10/17/21 [facility] Hospital course Narrative Note Date & Type Note Facility Hospital course Narrative No data available for this section [facility] Hospital Discharge instructions Note Date & Type Note Facility Hospital Discharge instructions No data available for this section [facility] Progress note Note Date & Type Note Facility Progress note No data available for this section [facility] Summary Purpose Family History No Family History Records Found Advance Directives No Advanced Directives Records Found Additional Source Comments Care Team (unrecognized sect ion and content) Personnel Name: DEXTER SALGADO DO Address: [address] [place] [address] Care Team (unrecognized sect ion and content) Care Team Personnel Name: DEXTER SALGADO DO Position: P4 Physician - Primary Care Member Role: Primary Care Physician Address: Address: [address] [place] [address] Care Team Related Persons Name: AIDEN YEUNG Care Team Personnel Name: DEXTER SALGADO DO Position: P4 Physician - Primary Care Member Role: Primary Care Physician Address: Address: [address] [place] [address] Care Team Related Persons Name: AIDEN YEUNG (unrecognized sect ion and content) No Status Records Found INFORMATION SOURCE (unrecogn ized section and content) FOR RECORDS PERTAINING TO PATIENTS WHO ARE OR HAVE BEEN ENROLLED IN A CHEMICAL DEPENDENCY/SUBSTANCEABUSE PROGRAM, SOME INFORMATION MAY BE OMITTED. This clinical summary was aggregated from multiple sources. Caution should be exercised in using it in the provision of clinical care. This summary normalizes information from multiple sources, and as a consequence, information in this document may materially change the coding, format and clinical context of patient data. In addition, data may be omitted in some cases. CLINICAL DECISIONS SHOULD BE BASED ON THE PRIMARY CLINICAL RECORDS. [employer] provides no warranty or guarantee of the accuracy or completeness of information in this document.
== END | disposition home or self-care (01) ==
LOC: LAB 13:37
PROVIDERS: Student in an Organized Health Care Education/Training Program; PCP Preventive Medicine Occupational Medicine; Referring Provider Internal Medicine Endocrinology, Diabetes & Metabolism; Visit Provider Internal Medicine Endocrinology, Diabetes & Metabolism
DX: C61 Malignant neoplasm of prostate (principal); E55.9 Vitamin D deficiency, unspecified
CPT/HCPCS: 36415; 80053; 82306; 83970; 84153

== ENCOUNTER → 2023-07-26 | Outpatient (CLI) | payer MEDICARE, SELFPAY ==
[2023-07-26 13:46] LABS: PSA,Total- Diagnostic 0.11 ng/mL (0.0-4.0)
== END | disposition home or self-care (01) ==
LOC: LAB 11:07
PROVIDERS: PCP Preventive Medicine Occupational Medicine; Referring Provider Nurse Practitioner; Visit Provider Nurse Practitioner
DX: C61 Malignant neoplasm of prostate (principal)
CPT/HCPCS: 36415; 84153

== ENCOUNTER → 2023-10-13 | Outpatient (CLI) | payer MEDICARE, SELFPAY ==
[2023-10-13 12:00] LABS: Vitamin D,25 Hydroxy 28.2 ng/mL
[2023-10-13 12:44] LABS: ALB/GLOB Ratio 1.1 RATIO (0.9-2.4); AST(SGOT) 20 U/L (15-37); Alanine Aminotransfer ALT/SGPT 20 U/L (16-61); Alkaline Phosphatase 110 U/L (45-117); Anion Gap 7 (5-15); BUN 14 mg/dL (7-18); BUN/Creat Ratio 12.3 RATIO (10-20); Calcium,Total 10.7 mg/dL (8.5-10.1); Chloride 110 mmol/L (98-107); Creatinine, Serum 1.14 mg/dL (0.70-1.30); EST Glomerular Filtration Rate 66 mL/min (>60); Est Glom Filt Rate - Afr Amer 80 mL/min (>60); Globulin 3.7 g/dL (2.2-4.2); Glucose 125 mg/dL (74-106); Potassium 4.2 mmol/L (3.5-5.1); Protein, Total 7.7 g/dL (6.4-8.2); Sodium Level 140 mmol/L (136-145)
== END | disposition home or self-care (01) ==
LOC: LAB 11:12
PROVIDERS: PCP Preventive Medicine Occupational Medicine; Referring Provider Internal Medicine Endocrinology, Diabetes & Metabolism; Visit Provider Internal Medicine Endocrinology, Diabetes & Metabolism
DX: E55.9 Vitamin D deficiency, unspecified (principal); E21.0 Primary hyperparathyroidism
CPT/HCPCS: 36415; 80053; 82306

== ENCOUNTER → 2024-01-27 | Outpatient (CLI) | payer MEDICARE, SELFPAY ==
[2024-01-27 13:11] LABS: PSA,Total- Diagnostic 0.47 ng/mL (0.0-4.0)
== END | disposition home or self-care (01) ==
LOC: LAB 10:35
PROVIDERS: PCP Preventive Medicine Occupational Medicine; Referring Provider Urology; Visit Provider Urology
DX: C61 Malignant neoplasm of prostate (principal)
CPT/HCPCS: 36415; 84153

== ENCOUNTER → 2024-02-08 | Outpatient (CLI) | payer MEDICARE, SELFPAY ==
[2024-02-08 13:57] LABS: AST(SGOT) 13 U/L (15-37); Alanine Aminotransfer ALT/SGPT 17 U/L (16-61); Albumin, Serum 3.8 g/dL (3.2-5.0); Alkaline Phosphatase 95 U/L (45-117); Anion Gap 5 (5-15); BUN 13 mg/dL (7-18); BUN/Creat Ratio 11.6 RATIO (10-20); Calcium,Total 10.5 mg/dL (8.5-10.1); Chloride 107 mmol/L (98-107); Creatinine, Serum 1.12 mg/dL (0.70-1.30); EST Glomerular Filtration Rate 67 mL/min (>60); Est Glom Filt Rate - Afr Amer 82 mL/min (>60); Globulin 3.7 g/dL (2.2-4.2); Glucose 118 mg/dL (74-106); Potassium 3.9 mmol/L (3.5-5.1); Protein, Total 7.5 g/dL (6.4-8.2); Sodium Level 140 mmol/L (136-145)
[2024-02-08 14:29] LABS: Vitamin D,25 Hydroxy 27.3 ng/mL
[2024-02-08 17:25] LABS: PTHIN 151.4 pg/mL (18.4-80.1)
== END | disposition home or self-care (01) ==
LOC: LAB 13:09
PROVIDERS: PCP Preventive Medicine Occupational Medicine; Referring Provider Internal Medicine Endocrinology, Diabetes & Metabolism; Visit Provider Internal Medicine Endocrinology, Diabetes & Metabolism
DX: E21.0 Primary hyperparathyroidism (principal); E55.9 Vitamin D deficiency, unspecified
CPT/HCPCS: 36415; 80053; 82306; 83970

== ENCOUNTER → 2024-03-09 | Outpatient (CLI) | payer MEDICARE, SELFPAY ==
--- NOTE | 2024-03-09 08:44 | ART_ITS ---
Reason For Study: PVD Procedure A bilateral lower extremity continuous wave Doppler with analog waveform analysis and ankle brachial indexes. Left Segmental Pressures Left brachial= 134mmHg. Left posterior tibial artery = 151mmHg. Left dorsalis pedis artery = 171mmHg. Left digit = 124 mmHg. The left posterior tibial artery waveforms are triphasic. The left dorsalis pedis waveforms are triphasic. Right Segmental Pressures Right brachial= 129mmHg. Right posterior tibial artery = 177mmHg. Right dorsalis pedis artery = 165mmHg. Right digit = 136 mmHg. The right posterior tibial artery waveforms are triphasic. The right dorsalis pedis waveforms are triphasic. Indices The right ankle brachial index by the posterior tibial artery is 1.32. The right ankle brachial index by the dorsalis pedis is 1.23. The right digital-brachial index is 1.01. The left ankle brachial index by the posterior tibial artery is 1.13. The left ankle brachial index by the dorsalis pedis is 1.28. The left digital-brachial index is 0.93. VL/Ankle Brachial Index Interpretation Summary Right CORRINE 1.32, normal. TBI and Doppler/PVR waveforms of the right ankle normal at rest. Left CORRINE 1.28, normal. TBI and Doppler/PVR waveforms of the left ankle normal a t rest. Ordering Physician: Lexie Denton Referring Physician: LEXIE DENTON EQUIPMENT SERVICE LEAD Performed By: Reji Painter RVT
--- NOTE | 2024-03-09 08:44 | ART_ITS ---
Reason For Study: PVD Procedure A bilateral lower extremity continuous wave Doppler with analog waveform analysis and ankle brachial indexes. Left Segmental Pressures Left brachial= 134mmHg. Left posterior tibial artery = 151mmHg. Left dorsalis pedis artery = 171mmHg. Left digit = 124 mmHg. The left posterior tibial artery waveforms are triphasic. The left dorsalis pedis waveforms are triphasic. Right Segmental Pressures Right brachial= 129mmHg. Right posterior tibial artery = 177mmHg. Right dorsalis pedis artery = 165mmHg. Right digit = 136 mmHg. The right posterior tibial artery waveforms are triphasic. The right dorsalis pedis waveforms are triphasic. Indices The right ankle brachial index by the posterior tibial artery is 1.32. The right ankle brachial index by the dorsalis pedis is 1.23. The right digital-brachial index is 1.01. The left ankle brachial index by the posterior tibial artery is 1.13. The left ankle brachial index by the dorsalis pedis is 1.28. The left digital-brachial index is 0.93. VL/Ankle Brachial Index Interpretation Summary Right CORRINE 1.32, normal. TBI and Doppler/PVR waveforms of the right ankle normal at rest. Left CORRINE 1.28, normal. TBI and Doppler/PVR waveforms of the left ankle normal a t rest. Ordering Physician: Lexie Denton Referring Physician: LEXIE DENTON SYSTEMS ARCHITECTURE ANALYST Performed By: Reji Painter RVT
== END | disposition home or self-care (01) ==
PROVIDERS: PCP Nurse Practitioner Family; Referring Provider Nurse Practitioner Family; Visit Provider Nurse Practitioner Family
DX: I73.9 Peripheral vascular disease, unspecified (principal)
CPT/HCPCS: 93922

== ENCOUNTER → 2024-07-14 | Outpatient (CLI) | payer MEDICARE, SELFPAY ==
[2024-07-14 11:17] LABS: PTHIN 97 pg/mL (11-61)
[2024-07-14 11:36] LABS: ALB/GLOB Ratio 1.5 RATIO (0.9-2.4); AST(SGOT) 20 U/L (<=37); Alanine Aminotransfer ALT/SGPT 13 U/L (<=46); Albumin, Serum 4.1 g/dL (3.4-4.8); Alkaline Phosphatase 87 U/L (40-129); Anion Gap 10 (5-15); BUN 18 mg/dL (4-19); Calcium,Total 10.4 mg/dL (7.6-11.0); Carbon Dioxide 25.2 mmol/L (21.0-32.0); Chloride 106 mmol/L (98-108); Creatinine, Serum 1.13 mg/dL (0.70-1.20); EST Glomerular Filtration Rate 67 (>60); Globulin 2.8 g/dL (2.2-4.2); Glucose 121 mg/dL (70-99); Potassium 4.5 mmol/L (3.3-5.1); Sodium Level 141 mmol/L (133-145); Total Bilirubin 1.14 mg/dL (0.00-1.30); Vitamin D,25 Hydroxy 32.7 ng/mL (30-100)
== END | disposition home or self-care (01) ==
LOC: LAB 10:31
PROVIDERS: PCP Nurse Practitioner Family; Referring Provider Internal Medicine Endocrinology, Diabetes & Metabolism; Visit Provider Internal Medicine Endocrinology, Diabetes & Metabolism
DX: E11.9 Type 2 diabetes mellitus without complications (principal); E03.9 Hypothyroidism, unspecified; E21.0 Primary hyperparathyroidism; E55.9 Vitamin D deficiency, unspecified
CPT/HCPCS: 36415; 80053; 82306; 83970

== ENCOUNTER → 2024-07-27 | Outpatient (CLI) | payer MEDICARE, SELFPAY ==
[2024-07-27 12:46] LABS: PSA,Total- Diagnostic 0.21 ng/mL (0.00-4.00)
== END | disposition home or self-care (01) ==
LOC: LAB 10:34
PROVIDERS: PCP Nurse Practitioner Family; Referring Provider Urology; Visit Provider Urology
DX: C61 Malignant neoplasm of prostate (principal)
CPT/HCPCS: 36415; 84153

== ENCOUNTER 2024-10-26 08:39 | Outpatient (RCR) | payer MEDICARE, SELFPAY ==
[2024-10-26 09:16] VITALS: BP 150/88; PULSE 61; RESP 18; TEMP 37.2; BMI 34.9
--- NOTE | 2024-10-26 13:47 | WC ---
PHOTO 10/26/24 LEFT GR
--- NOTE | 2024-10-27 16:18 | PCM.WC.HP ---
History of Present Illness Date of Service: 10/26/24 Chief Complaint: Bilateral lower extremity swelling and dependent edema; bilateral lower extremity venous stasis dermatitis; venous stasis ulceration of the left lower extremity History of Wound: This is a 79-year-old male who presented with chronic swelling and edema in his lower extremities bilaterally. The patient noticed the development of a large blister on the left pretibial surface approximately 1 month ago, which has subsequently burst spontaneously, resulting in a large ulceration. The patient has been using Xeroform topically as well as an ABD. A noninvasive lower extremity arterial study performed on March 13, 2024, revealed no evidence of significant lower extremity arterial occlusive disease. The patient suffers from chronic low back problems. As result, he sleeps in a chair each night. He spends long hours each day in an idle sitting position. He stated that he sits and watches television at least 6 hours each day. He is not very active, and requires a cane for ambulation. He does not smoke. He is not diabetic. He does have a history of prostate adenocarcinoma, for which he was treated with radiation therapy 2 years ago. [facility] Medical History Dependent edema Diverticulosis Venous stasis ulcer of left lower leg with edema of left lower leg Venous stasis dermatitis of both lower extremities Left leg swelling Right leg swelling Anxiety Cancer Low iron Back pain Syncope Former smoker Vertigo Malignant melanoma of skin Nocturia Urinary urgency BPH (benign prostatic hyperplasia) Elevated PSA Primary hyperparathyroidism Vitamin D deficiency Arthritis Wears dentures Wears glasses Ambulates with cane Gout Bladder disease High cholesterol Gastric reflux Non-smoker Leg cramps Hypertension Home Medications Medication Instructions Recorded Last Taken Type amlodipine 10 mg tablet 10 mg PO DAILY 03/19/21 11/20/22 History atorvastatin 20 mg tablet 20 mg PO QHS 03/19/21 Unknown History losartan 100 mg tablet 100 mg PO DAILY 03/19/21 11/20/22 History metoprolol succinate 100 mg 100 mg PO BID 03/19/21 11/20/22 History tablet,extended release 24 hr omeprazole 40 mg capsule,delayed 40 mg PO DAILY 03/19/21 11/20/22 History release calcium citrate 500 mg PO QDAY 02/24/24 Unknown History cholecalciferol (vitamin D3) 50 100 mcg PO QDAY 07/14/24 Unknown History mcg (2,000 unit) capsule mecobalamin (vitamin B12) 1,000 1,000 mcg PO QDAY 07/14/24 Unknown History mcg chewable tablet acetaminophen 500 mg tablet 500 mg PO Q6H PRN fever or pain 10/24/24 Unknown History (Tylenol Extra Strength) furosemide 20 mg tablet 20 mg PO DAILY 10/26/24 10/26/24 History Allergy/AdvReac Type Severity Reaction Status Date / Time Penicillins (PCN) Allergy pass out Verified 10/26/24 09:07 Surgical History S/P TURP (status post transurethral resection of prostate) History of knee surgery History of back surgery Social History Smoking Status: Former smoker alcohol intake: former substance use type: does not use what type of physical activity do you participate in: none Vital Signs Vital Signs Vital Signs: Weight Weight: 230 lb Body Mass Index (BMI) 34.9 Physical Exam Const alert, oriented x3, no apparent distress and well nourished Constitutional Narrative: The patient's BMI is 35.0. General Appearance: cooperative, comfortable, well kempt and well developed Orientation / Consciousness: awake, oriented to person, oriented to place and oriented to time Exam Limitations: no limitations HEENT normocephalic and head/scalp atraumatic Head and Scalp: normal to inspection, normocephalic and atraumatic Face and Sinus: normal facial exam Nose: external nose normal External Ear: external ears normal Eyes EOMs intact bilaterally General Eye: normal appearance of both eyes Resp normal respiratory effort, normal air movement, no retractions and no use of accessory muscles Effort and Inspection: able to speak in complete sentences Skin Wound Narrative: Moderate swelling and edema are noted in the patient's lower extremities bilaterally. Venous stasis dermatitis is noted in the gaiter areas bilaterally. Lipodermatosclerosis is noted bilaterally as well. A large ulceration is noted on the left pretibial surface. The base of the ulceration is generally pink and healthy in appearance, with bioburden and several small areas of nonviable tissue. There is no sign of infection or cellulitis. Dimensions are documented elsewhere. Ulcer margins are well beveled. Neuro oriented x3, CN's II-XII intact bilaterally, moves all extremities, no focal motor deficits and no sensory deficits noted Sensorium / Orientation: awake, alert, oriented to person, oriented to place and oriented to time Psych Appearance: grossly normal and appropriate Attitude: calm Activity / Motor Behavior: appropriate eye contact Speech: normal speech Mood & Affect: euthymic mood Thought Process: normal thought process Thought Content: normal thought content Attention / Concentration: attention grossly intact Debridement Note Debridement Note Wound debrided: Left pretibial ulceration Laterality: Left Type of Debridement: Selective debridement Anesthesia Used: 5% Lidocaine Gel Depth: Down to and including healthy tissue Percentage of wound debrided: 100 Instrument Used: 5mm curette Tissue Removed: Bioburden and nonviable, devitalized tissue Severity: Limited To Skin Breakdown Amount of bleeding with debridement: Mild Bleeding Controlled with: Compression and gauze Patient tolerated procedure: Patient tolerated procedure well Post-Debridement Measurements and Additional Note: Post-Debridement Measurements/Treatment - Nurse 1 - General Ulcer Assessment Start: 10/26/24 09:09 Freq: Status: Active Protocol: KARI Activity Type Activity Date Activity User E-sign Co-sign Detail Recorded Client Recorded Date Recorded By Document 10/26/24 09:16 DS [id number] 10/26/24 09:20 DS Edit Result 10/26/24 09:16 DS (1) [id number] 10/26/24 09:34 DS (1) Left - Popliteal Doppler => Multiphasic - Posterior Tibial Doppler => Multiphasic - Dorsalis Pedis Doppler => Multiphasic - Extremity Color => Red - Hair Growth on Legs => No - Hair Growth on Toes => No - Temperature of Extremity => Warm - Capillary Refill => Less than 3 => Seconds - Thick => Yes - Discolored => Yes - Deformed => Yes - Improper Length & Hygeine => No 10/26/24 09:16 - Today's Visit Information Type of service Initial Visit Arrival Mode Ambulatory,Cane Accompanied by FRIEND Patient Identification Verified (Name & Yes ) Patient Requires Transmission-Based No Precautions Safety Precautions Fall Prevention Height and Weight Height 5 ft 8 in Weight 230 lb Weight in Pounds 230.0 lbs Weight Measurement Method Stated by Patient Body Mass Index (BMI) 34.9 BMI Classification Obese Vital Signs Temperature (97.8 F-99.1 F) 99.0 F Temperature Source Temporal Pulse Rate (60-100) 61 Pulse Location Monitor Respiratory Rate (12-18) 18 Respiratory rate source Observation Oxygen Delivery Method Room Air Blood Pressure (90/60-120/80) 150/88 H Blood Pressure Mean 108 Source Monitor Position Sitting Blood Pressure Location Left Arm Pain Scale: 0-10 Numeric Is Patient Pain Free? Yes Lower Extremity Assessment/ Foot Assessment/ Toe Nail Assessment Left -Popliteal Doppler Multiphasic -Posterior Tibial Doppler Multiphasic -Dorsalis Pedis Doppler Multiphasic -Extremity Color Red -Hair Growth on Legs No -Hair Growth on Toes No -Temperature of Extremity Warm -Capillary Refill Less than 3 Seconds -Thick Yes -Discolored Yes -Deformed Yes -Improper Length & Hygeine No Communication Assessment Preferred language Slovak Supervisor Scrap Preparation Required No Able to Read Yes Able to Write Yes Communication Tools None Right Hearing Abillity Normal Left Hearing Abillity Normal Visual Assistive Devices Glasses Teaching Assessment Preferences Verbal,Written, Demonstration Barriers to Learning None Readiness To Learn Excellent Willingness to Engage in Self Management High Activies Readiness to Engage in Self Management High Activities Anxiety Level Calm Cooperation Cooperative Perception Coherent Interest in Health Problem Asks Questions Education Importance Acknowledges Need Does Patient Smoke tobacco or other No substances Is Patient Diabetic No Functional Assessment Recent Decline in Ability to Perform Denies Any Declines Culture/Adventism/[place] [employer] Cultural/Adventism Needs that may affect No Treatment Plan Teaching: Wound Center *Welcome to the Wound Center -Person Taught Patient,Family -Teaching Method Discussion -Response to teaching Verbalize Understanding WC - Nurse 1 - General Ulcer Measurement Start: 10/26/24 09:09 Freq: Status: Active Protocol: Activity Type Activity Date Activity User E-sign Co-sign Detail Recorded Client Recorded Date Recorded By Document 10/26/24 09:20 DS [id number] 10/26/24 09:33 DS 10/26/24 09:20 Wound Center Nurse 1 #1 Left Gonzalez -Current Size (cm) - Length 9.5 -Current Size (cm) - Width 9.0 -Current Size (cm) - Depth 0.1 -Total Square Cm 85.50 -Date of Last Picture (Recall this 10/26/24 field) -Photo Taken Yes -Tunneling No -Undermining/Tunneling No -Circular Undermining No -Exudate Amt Medium -Exudate Type Serosanguineous -Wound Margin Distinct, Outline Attached -Texture (Landy-wound Skin Appearance) Assessed -Moisture (Landy-wound Skin Appearance) Assessed -Color (Landy-wound Skin Appearance) Assessed -Temperature (Landy-wound Skin No Abnormality Appearance) (Pt Warm) -Tenderness on Palpation (Landy-wound No Skin Appearance) -Ulcer Cleansing Soap and Water Lower Limb Edema Present Yes Right Calf (cm) 44.2 Right Ankle (cm) 27.3 Left Calf (cm) 44.4 Left Ankle (cm) 27 WC - Nurse 2 - General Ulcer CM Notes Start: 10/26/24 09:09 Freq: Status: Active Protocol: Activity Type Activity Date Activity User E-sign Co-sign Detail Recorded Client Recorded Date Recorded By Document 10/26/24 09:49 GM [id number] 10/26/24 10:01 GM Edit Result 10/26/24 09:49 GM (1) [id number] 10/26/24 10:04 GM Edit Result 10/26/24 09:49 GM (2) [id number] 10/26/24 10:05 GM (1) #1 Left Gonzalez - Correct Procedure No => Yes - Procedure Performed No => Yes - Type of Procedure => Debridement - Clinical Debridement => Epidermis / Dermis - Tissue Removed => Epidermis - Post Debridement (cm) - Length => 9.0 - Post Debridement (cm) - Width => 9.5 - Post Debridement (cm) - Depth => 0.1 - Total Square (Post) (cm) => 85.50 - Area of Debridement (cm) - Length => 9.0 - Area of Debridement (cm) - Width => 9.5 - Total Square (Area) (cm) => 85.50 - Tunneling => No - Undermining/Tunneling => No - Bleeding Controlled with NA => Pressure - Debridement - Open, 1st 20sq cm => Yes - Debridement, Open, ea addt'l 20sq cm => 4 or part thereof (2) #1 Left Gonzalez - Post Debridement (cm) - Length 9.0 => 9.5 - Post Debridement (cm) - Width 9.5 => 9.0 10/26/24 09:49 Wound Center Nurse 2 #1 Left Gonzalez -Time 09:50 -Correct Patient Yes -Correct Side, Site, Position Yes -Correct Procedure Yes -Procedure Performed Yes -Type of Procedure Debridement -Clinical Debridement Epidermis / Dermis -Tissue Removed Epidermis -Post Debridement (cm) - Length 9.5 -Post Debridement (cm) - Width 9.0 -Post Debridement (cm) - Depth 0.1 -Total Square (Post) (cm) 85.50 -Area of Debridement (cm) - Length 9.0 -Area of Debridement (cm) - Width 9.5 -Total Square (Area) (cm) 85.50 -Tunneling No -Undermining/Tunneling No -Wound/Ulcer Outcome Not Healed -Foul Odor after Cleansing No -Bioengineered Tissue No -Bleeding Controlled with Pressure -Offloading No -Debridement - Open, 1st 20sq cm Yes -Debridement, Open, ea addt'l 20sq cm 4 or part thereof -Wound Comment(s) open blister Pain Scale: 0-10 Numeric Is Patient Pain Free? Yes - Nurse 3 - General Ulcer D/C NN Start: 10/26/24 09:09 Freq: Status: Active Protocol: Activity Type Activity Date Activity User E-sign Co-sign Detail Recorded Client Recorded Date Recorded By Document 10/26/24 10:09 DS [id number] 10/26/24 10:16 DS Edit Result 10/26/24 10:09 DS (1) [id number] 10/26/24 10:16 DS (1) #1 Left Gonzalez - Wound Comment(s) => compression UNNA BL 10/26/24 10:09 Wound Care Center Nurse 3 #1 Left Gonzalez -Wound Comment(s) compression UNNA BL BLE -Multi-Layered Wrap Application Unna Boot - Bilateral -Unna- Bilat (Qty applied) 1 Pain Scale: 0-10 Numeric Is Patient Pain Free? Yes WC - Visit Discharge Discharge Condition Stable Ambulatory Status Ambulatory,Cane Transportation Private Auto Charges/Coding Wound Center CF Procedures [id number]: 53508 RMVL DEVITAL TIS 20 CM/< (66600 x 1; 65199 x 4) Multi Select Codes Visit Charges Office Visit/Consults: 90218 OV L4 New 45 min Wound Center CF Procedures [id number]: 03802 RMVL DEVITAL TIS 20 CM/< (54228 x 1; 66027 x 4) Assessment/Plan Assessment/Plan (1) Venous stasis ulcer of left lower leg with edema of left lower leg: CODE(S): I83.029 - Varicose veins of left lower extremity with ulcer of unspecified site; I83.892 - Varicose veins of left lower extremity with other complications; L97.929 - Non-pressure chronic ulcer of unspecified part of left lower leg with unspecified severity; R60.0 - Localized edema (2) Venous stasis dermatitis of both lower extremities: CODE(S): I87.2 - Venous insufficiency (chronic) (peripheral) (3) Right leg swelling: CODE(S): M79.89 - Other specified soft tissue disorders (4) Left leg swelling: CODE(S): M79.89 - Other specified soft tissue disorders (5) Dependent edema: CODE(S): R60.9 - Edema, unspecified (6) Primary hyperparathyroidism: CODE(S): E21.0 - Primary hyperparathyroidism (7) Cancer of prostate with intermediate recurrence risk (stage T2b-c or [place] 7 or PSA 10-20): CODE(S): C61 - Malignant neoplasm of prostate (8) Hypertension: CODE(S): I10 - Essential (primary) hypertension (9) Gastric reflux: CODE(S): K21.9 - Gastro-esophageal reflux disease without esophagitis (10) High cholesterol: CODE(S): E78.00 - Pure hypercholesterolemia, unspecified (11) Gout: CODE(S): M10.9 - Gout, unspecified (12) Ambulates with cane: CODE(S): Z99.89 - Dependence on other enabling machines and devices (13) Arthritis: CODE(S): M19.90 - Unspecified osteoarthritis, unspecified site (14) Cancer: CODE(S): C80.1 - Malignant (primary) neoplasm, unspecified (15) Diverticulosis: CODE(S): K57.90 - Diverticulosis of intestine, part unspecified, without perforation or abscess without bleeding (16) S/P TURP (status post transurethral resection of prostate): CODE(S): Z90.79 - Acquired absence of other genital organ(s) (17) History of knee surgery: CODE(S): Z98.890 - Other specified postprocedural states (18) History of back surgery: CODE(S): Z98.890 - Other specified postprocedural states PLAN: Plan This is a 79-year-old moderately obese male with a history of prostate cancer, treated with radiation. He is not active, and spends long hours each day sitting in idle fashion. He also sleeps in a chair due to back problems. As a result, the patient has developed chronic swelling and edema in his lower extremities, with skin changes of venous stasis dermatitis and an ulceration on the left pretibial surface. A lengthy discussion has been undertaken with the patient as to the appropriate means of conservative treatment relative to his lower extremity swelling and venous stasis manifestations. Patient has been advised to sleep on a flat surface at night, such that his legs are level with his heart, or higher. He has also been advised to elevate his lower extremities is much as possible, even during daytime hours. Prolonged idle sitting has been discouraged. Activity has been encouraged, though the patient is not likely to significantly enhance his activity level. We are to implement compression to both lower extremities by means of boot or compression wraps, which will be reapplied twice weekly. The patient is to return in 1 week for reevaluation. Ultimately, the patient will require long-term alteration in his daily habits, and a means of long-term compression. Total time: 48 minutes
== END 2024-10-30 23:59 | disposition home or self-care (01) ==
LOC: WC 08:39
PROVIDERS: PCP Nurse Practitioner Family; Referring Provider Nurse Practitioner Family; Visit Provider Surgery
DX: I83.228 Varicose veins of left lower extremity with both ulcer of other part of lower extremity and inflammation (principal); L97.821 Non-pressure chronic ulcer of other part of left lower leg limited to breakdown of skin; I83.892 Varicose veins of left lower extremity with other complications; E78.00 Pure hypercholesterolemia, unspecified; I10 Essential (primary) hypertension; M10.9 Gout, unspecified; E21.0 Primary hyperparathyroidism; M19.90 Unspecified osteoarthritis, unspecified site; K21.9 Gastro-esophageal reflux disease without esophagitis; Z79.899 Other long term (current) drug therapy; Z85.46 Personal history of malignant neoplasm of prostate; Z92.3 Personal history of irradiation; Z87.891 Personal history of nicotine dependence
CPT/HCPCS: 29580; 97597; 97598; 99213; G0463

== ENCOUNTER 2024-11-09 11:30 | Outpatient (RCR) | payer MEDICARE, SELFPAY ==
[2024-10-31 14:49] VITALS: BP 127/57; PULSE 62; RESP 18; TEMP 36.7
--- NOTE | 2024-11-01 08:52 | WC ---
PHOTO 10/31/24 LEFT GR
[2024-11-02 08:23] VITALS: BP 137/64; PULSE 61; RESP 15; TEMP 36.2
--- NOTE | 2024-11-02 12:58 | HP.PCM_ITS ---
History of Present Illness Date of Service: 10/31/24 Chief Complaint: Bilateral lower extremity swelling and dependent edema; b ilateral lower extremity venous stasis dermatitis; venous stasis ulceration of the left lower extremity History of Wound: This is a 79-year-old male who presented with chronic swelling and edema in his lower extremities bilaterally. The patient noticed the development of a large blister on the left pretibial surface approximately 1 month ago, which has subsequently burst spontaneously, resulting in a large ulceration. The patient has been using Xeroform topically as well as an ABD. A noninvasive lower extremity arterial study performed on March 13, 2024, revealed no evidence of significant lower extremity arterial occlusive disease. The patient suffers from chronic low back problems. As result, he sleeps in a chair each night. He spends long hours each day in an idle sitting position. He stated that he sits and watches television at least 6 hours each day. He is not very active, and requires a cane for ambulation. He does not smoke. He is not diabetic. He does have a history of prostate adenocarcinoma, for which he was treated with radiation therapy 2 years ago. [facility] Medical History Dependent edema Diverticulosis Venous stasis ulcer of left lower leg with edema of left lower leg Venous stasis dermatitis of both lower extremities Left leg swelling Right leg swelling Anxiety Cancer Low iron Back pain Syncope Former smoker Vertigo Malignant melanoma of skin Nocturia Urinary urgency BPH (benign prostatic hyperplasia) Elevated PSA Primary hyperparathyroidism Vitamin D deficiency Arthritis Wears dentures Wears glasses Ambulates with cane Gout Bladder disease High cholesterol Gastric reflux Non-smoker Leg cramps Hypertension Home Medications Medication Instructions Recorded Last Taken Type amlodipine 10 mg tablet 10 mg PO DAILY 03/19/2111/01 History atorvastatin 20 mg tablet 20 mg PO QHS 03/19/21 Unknow n History losartan 100 mg tablet 100 mg PO DAILY 03/19/21 History metoprolol succinate 100 mg 100 mg PO BID 03/19/21 History tablet,extended release 24 hr omeprazole 40 mg capsule,delayed 40 mg PO DAILY 11/20/22 History release calcium citrate 500 mg PO QDAY 02/24/24 Unkn own History cholecalciferol (vitamin D3) 50 100 mcg PO QDAY Unknown History mcg (2,000 unit) capsule mecobalamin (vitamin B12) 1,000 1,000 mcg PO QDAY 07/01 08/25 Unknown History mcg chewable tablet acetaminophen 500 mg tablet 500 mg PO Q6H PRN fever or pain 10/24/24 Unknown History (Tylenol Extra Strength) furosemide 20 mg tablet 20 mg PO DAILY 10/26/24 06/10/25 History Allergy/AdvReac Type Severity Reaction Status Date / Time Penicillins (PCN) Allergy pass out Verified 10/26/24 09:07 Surgical History S/P TURP (status post transurethral resection of prostate) History of knee surgery History of back surgery Social History Smoking Status: Former smoker alcohol intake: former substance use type: does not use what type of physical activity do you participate in: none Vital Signs Vital Signs Vital Signs: 11/02/24 08:23 Temperature 97.2 F L Temperature Source Temporal Pulse Rate 61 Respiratory Rate 15 Blood Pressure 137/64 H Blood Pressure Mean 88 Blood Pressure Source Monitor Blood Pressure Position Supine Blood Pressure Location Right Arm Debridement Note Debridement Note Post-Debridement Measurements and Additional Note: Post-Debridement Measurements/Treatment - Nurse 1 - General Ulcer Assessment Start: 10/31/24 14:49 Freq: Status: Active Protocol: WC.LOWARNULFOT Activity Type Activity Date Activity User E-sign Co-sign Detail Recorded Client Recorded Date Recorded By Document 10/31/24 14:49 [facility] [id number] 10/31/24 15:03 [facility] Document 11/02/24 08:23 ML [id number] 11/02/24 08:25 ML 10/31/24 11/02/24 14:49 08:23 - Today's Visit Information Type of service Follow-up Visit Nurse-only (Physician/STAGE ELECTRICIAN Visit ) Arrival Mode Ambulatory Ambulatory,Cane Transfer Assistance None Patient Identification Verified (Name & Yes Yes ) Patient Requires Transmission-Based No No Precautions Vital Signs Temperature (97.8 F-99.1 F) 98.1 F 97.2 F L Temperature Source Temporal Temporal Pulse Rate (60-100) 62 61 Pulse Location Monitor Monitor Respiratory Rate (12-18) 18 15 Respiratory rate source Observation Observation Oxygen Delivery Method Room Air Blood Pressure (90/60-120/80) 127/57 H 137/64 H Blood Pressure Mean 80 88 Source Monitor Monitor Position Sitting Supine Blood Pressure Location Right Arm Right Arm History Since Last Visit- (Skip if this is Patient's initial visit) Have you changed medications since your No No last visit? Any new allergies or adverse reactions No No Had a fall/change in ADL's that may No No increase risk of falls Signs or symptoms of abuse and/or No No neglect since last visit Have you been in the hospital since your No last visit? Has dressing in place as prescribed Yes Yes Has compression in place as prescribed Yes Yes Has offloadiing in place as prescribed N/A N/A Experienced any changes in pain level or No No management Left Footwear Diabetic Shoe Right Footwear Diabetic Shoe Pain Scale: 0-10 Numeric Is Patient Pain Free? Yes Yes WC - Nurse 1 - General Ulcer Measurement Start: 10/31/24 14:49 Freq: Status: Active Protocol: Activity Type Activity Date Activity User E-sign Co-sign Detail Recorded Client Recorded Date Recorded By Document 10/31/24 14:49 [facility] [id number] 10/31/24 15:03 [facility] 10/31/24 14:49 Wound Center Nurse 1 #1 Left Gonzalez cluster -Combined with other wound No -Current Size (cm) - Length 0.1 -Current Size (cm) - Width 0.1 -Current Size (cm) - Depth 0.1 -Total Square Cm 0.01 -Date of Last Picture (Recall this 10/31/24 field) -Photo Taken Yes -Epithelialization Medium 34-66% -Tunneling No -Undermining/Tunneling No -Circular Undermining No -Exudate Amt Medium -Exudate Type Serosanguineous -Wound Margin Flat & Intact -Granulation Amt Large (67-100%) -Granulation Quality [place] -Slough/Fibrin Yes -Necrosis Amt Small (1-33%) -Necrotic Tissue Type Adherent Slough -Texture (Landy-wound Skin Appearance) Assessed, Scarring -Moisture (Landy-wound Skin Appearance) Assessed,Dry/ Scaly -Color (Landy-wound Skin Appearance) Assessed -Temperature (Landy-wound Skin No Abnormality Appearance) (Pt Warm) -Tenderness on Palpation (Landy-wound No Skin Appearance) -Ulcer Cleansing Soap and Water -Foul Odor after Cleansing No -Anesthetic Used 5% Lidocaine Gel Lower Limb Edema Present Yes Right Calf (cm) 42 Right Ankle (cm) 25.5 Left Calf (cm) 40.9 Left Ankle (cm) 25.2 - Nurse 2 - General Ulcer CM Notes Start: 10/31/24 14:49 Freq: Status: Active Protocol: Activity Type Activity Date Activity User E-sign Co-sign Detail Recorded Client Recorded Date Recorded By Document 10/31/24 15:26 DS [id number] 10/31/24 15:31 DS 10/31/24 15:26 Wound Center Nurse 2 #1 Left Gonzalez cluster -Time 15:26 -Correct Patient Yes -Correct Side, Site, Position Yes -Procedure Performed No -Post Debridement (cm) - Length 7.0 -Post Debridement (cm) - Width 6.5 -Post Debridement (cm) - Depth 0.1 -Total Square (Post) (cm) 45.50 -Area of Debridement (cm) - Length 7.0 -Area of Debridement (cm) - Width 6.5 -Total Square (Area) (cm) 45.50 -Tunneling No -Undermining/Tunneling No -Circular Undermining No -Wound/Ulcer Outcome Not Healed Pain Scale: 0-10 Numeric Is Patient Pain Free? Yes - Nurse 3 - General Ulcer D/C NN Start: 10/31/24 14:49 Freq: Status: Active Protocol: Activity Type Activity Date Activity User E-sign Co-sign Detail Recorded Client Recorded Date Recorded By Document 10/31/24 15:34 KW [id number] 10/31/24 15:35 KW Document 11/02/24 08:23 ML [id number] 11/02/24 08:25 ML 10/31/24 11/02/24 15:34 08:23 Wound Care Center Nurse 3 #1 Left Gonzalez cluster -Wound Comment(s) no dressings applied LLE -Multi-Layered Wrap Application Unna Boot - Unna Boot - Left Left -Unna- Left (Qty applied) 1 1 Pain Scale: 0-10 Numeric Is Patient Pain Free? Yes Yes - Visit Discharge Discharge Condition Stable Ambulatory Status Ambulatory,Cane Transportation Private Auto Medication Reconcilliation completed & No provided to patient/care provider Clinical Summary of Care Provided Yes
--- NOTE | 2024-11-02 12:58 | PCM.WC.HP ---
History of Present Illness Date of Service: 10/31/24 Chief Complaint: Bilateral lower extremity swelling and dependent edema; bilateral lower extremity venous stasis dermatitis; venous stasis ulceration of the left lower extremity History of Wound: This is a 79-year-old male who presented with chronic swelling and edema in his lower extremities bilaterally. The patient noticed the development of a large blister on the left pretibial surface approximately 1 month prior to presentation, which subsequently burst spontaneously, resulting in a large ulceration. The patient had been using Xeroform topically as well as an ABD. A noninvasive lower extremity arterial study performed on March 13, 2024, revealed no evidence of significant lower extremity arterial occlusive disease. The patient suffers from chronic low back problems. As a result, he sleeps in a chair each night. He spends long hours each day in an idle sitting position. He stated that he sits and watches television at least 6 hours each day. He is not very active, and requires a cane for ambulation. He does not smoke. He is not diabetic. He does have a history of prostate adenocarcinoma, for which he was treated with radiation therapy 2 years ago. [facility] Medical History Dependent edema Diverticulosis Venous stasis ulcer of left lower leg with edema of left lower leg Venous stasis dermatitis of both lower extremities Left leg swelling Right leg swelling Anxiety Cancer Low iron Back pain Syncope Former smoker Vertigo Malignant melanoma of skin Nocturia Urinary urgency BPH (benign prostatic hyperplasia) Elevated PSA Primary hyperparathyroidism Vitamin D deficiency Arthritis Wears dentures Wears glasses Ambulates with cane Gout Bladder disease High cholesterol Gastric reflux Non-smoker Leg cramps Hypertension Home Medications Medication Instructions Recorded Last Taken Type amlodipine 10 mg tablet 10 mg PO DAILY 03/19/21 11/20/22 History atorvastatin 20 mg tablet 20 mg PO QHS 03/19/21 Unknown History losartan 100 mg tablet 100 mg PO DAILY 03/19/21 11/20/22 History metoprolol succinate 100 mg 100 mg PO BID 03/19/21 11/20/22 History tablet,extended release 24 hr omeprazole 40 mg capsule,delayed 40 mg PO DAILY 03/19/21 11/20/22 History release calcium citrate 500 mg PO QDAY 02/24/24 Unknown History cholecalciferol (vitamin D3) 50 100 mcg PO QDAY 07/14/24 Unknown History mcg (2,000 unit) capsule mecobalamin (vitamin B12) 1,000 1,000 mcg PO QDAY 07/14/24 Unknown History mcg chewable tablet acetaminophen 500 mg tablet 500 mg PO Q6H PRN fever or pain 10/24/24 Unknown History (Tylenol Extra Strength) furosemide 20 mg tablet 20 mg PO DAILY 10/26/24 10/26/24 History Allergy/AdvReac Type Severity Reaction Status Date / Time Penicillins (PCN) Allergy pass out Verified 10/26/24 09:07 Surgical History S/P TURP (status post transurethral resection of prostate) History of knee surgery History of back surgery Social History Smoking Status: Former smoker alcohol intake: former substance use type: does not use what type of physical activity do you participate in: none Vital Signs Vital Signs Vital Signs: 11/02/24 08:23 Temperature 97.2 F L Temperature Source Temporal Pulse Rate 61 Respiratory Rate 15 Blood Pressure 137/64 H Blood Pressure Mean 88 Blood Pressure Source Monitor Blood Pressure Position Supine Blood Pressure Location Right Arm Physical Exam Const alert, oriented x3, no apparent distress and well nourished Constitutional Narrative: The patient's BMI is 35.0. General Appearance: cooperative, comfortable, well kempt and well developed Orientation / Consciousness: awake, oriented to person, oriented to place and oriented to time Exam Limitations: no limitations HEENT normocephalic and head/scalp atraumatic Head and Scalp: normal to inspection, normocephalic and atraumatic Face and Sinus: normal facial exam Nose: external nose normal External Ear: external ears normal Eyes EOMs intact bilaterally General Eye: normal appearance of both eyes Resp normal respiratory effort, normal air movement, no retractions and no use of accessory muscles Effort and Inspection: able to speak in complete sentences Skin Wound Narrative: Mild swelling and edema are noted in the patient's lower extremities bilaterally. Venous stasis dermatitis is noted in the gaiter areas bilaterally, though improved since the patient's last visit. Lipodermatosclerosis is noted bilaterally as well. A large ulceration is noted on the left pretibial surface. The base of the ulceration is generally pink and healthy in appearance. The ulceration is confined to the dermal layers. There appears to have been significant epithelialization of the ulcer surface within the last week. A small amount of bioburden remains. There is no sign of infection or cellulitis. Dimensions are documented elsewhere. Ulcer margins are well beveled. Neuro oriented x3, CN's II-XII intact bilaterally, moves all extremities, no focal motor deficits and no sensory deficits noted Sensorium / Orientation: awake, alert, oriented to person, oriented to place and oriented to time Speech: speech normal Psych Appearance: grossly normal and appropriate Attitude: calm Activity / Motor Behavior: appropriate eye contact Speech: normal speech Mood & Affect: euthymic mood Thought Process: normal thought process Thought Content: normal thought content Attention / Concentration: attention grossly intact Debridement Note Debridement Note Tissue Removed: Bioburden No debridement was completed: No debridement was completed today Post-Debridement Measurements and Additional Note: Post-Debridement Measurements/Treatment - Nurse 1 - General Ulcer Assessment Start: 10/31/24 14:49 Freq: Status: Active Protocol: KARI Activity Type Activity Date Activity User E-sign Co-sign Detail Recorded Client Recorded Date Recorded By Document 10/31/24 14:49 [facility] [id number] 10/31/24 15:03 [facility] Document 11/02/24 08:23 ML [id number] 11/02/24 08:25 ML 10/31/24 11/02/24 14:49 08:23 - Today's Visit Information Type of service Follow-up Visit Nurse-only (Physician/ASSISTANT HAIRSTYLIST Visit ) Arrival Mode Ambulatory Ambulatory,Cane Transfer Assistance None Patient Identification Verified (Name & Yes Yes ) Patient Requires Transmission-Based No No Precautions Vital Signs Temperature (97.8 F-99.1 F) 98.1 F 97.2 F L Temperature Source Temporal Temporal Pulse Rate (60-100) 62 61 Pulse Location Monitor Monitor Respiratory Rate (12-18) 18 15 Respiratory rate source Observation Observation Oxygen Delivery Method Room Air Blood Pressure (90/60-120/80) 127/57 H 137/64 H Blood Pressure Mean 80 88 Source Monitor Monitor Position Sitting Supine Blood Pressure Location Right Arm Right Arm History Since Last Visit- (Skip if this is Patient's initial visit) Have you changed medications since your No No last visit? Any new allergies or adverse reactions No No Had a fall/change in ADL's that may No No increase risk of falls Signs or symptoms of abuse and/or No No neglect since last visit Have you been in the hospital since your No last visit? Has dressing in place as prescribed Yes Yes Has compression in place as prescribed Yes Yes Has offloadiing in place as prescribed N/A N/A Experienced any changes in pain level or No No management Left Footwear Diabetic Shoe Right Footwear Diabetic Shoe Pain Scale: 0-10 Numeric Is Patient Pain Free? Yes Yes RONAN - Nurse 1 - General Ulcer Measurement Start: 10/31/24 14:49 Freq: Status: Active Protocol: Activity Type Activity Date Activity User E-sign Co-sign Detail Recorded Client Recorded Date Recorded By Document 10/31/24 14:49 [facility] [id number] 10/31/24 15:03 [facility] 10/31/24 14:49 Wound Center Nurse 1 #1 Left Gonzalez cluster -Combined with other wound No -Current Size (cm) - Length 0.1 -Current Size (cm) - Width 0.1 -Current Size (cm) - Depth 0.1 -Total Square Cm 0.01 -Date of Last Picture (Recall this 10/31/24 field) -Photo Taken Yes -Epithelialization Medium 34-66% -Tunneling No -Undermining/Tunneling No -Circular Undermining No -Exudate Amt Medium -Exudate Type Serosanguineous -Wound Margin Flat & Intact -Granulation Amt Large (67-100%) -Granulation Quality [place] -Slough/Fibrin Yes -Necrosis Amt Small (1-33%) -Necrotic Tissue Type Adherent Slough -Texture (Landy-wound Skin Appearance) Assessed, Scarring -Moisture (Landy-wound Skin Appearance) Assessed,Dry/ Scaly -Color (Landy-wound Skin Appearance) Assessed -Temperature (Landy-wound Skin No Abnormality Appearance) (Pt Warm) -Tenderness on Palpation (Landy-wound No Skin Appearance) -Ulcer Cleansing Soap and Water -Foul Odor after Cleansing No -Anesthetic Used 5% Lidocaine Gel Lower Limb Edema Present Yes Right Calf (cm) 42 Right Ankle (cm) 25.5 Left Calf (cm) 40.9 Left Ankle (cm) 25.2 RONAN - Nurse 2 - General Ulcer CM Notes Start: 10/31/24 14:49 Freq: Status: Active Protocol: Activity Type Activity Date Activity User E-sign Co-sign Detail Recorded Client Recorded Date Recorded By Document 10/31/24 15:26 DS [id number] 10/31/24 15:31 DS 10/31/24 15:26 Wound Center Nurse 2 #1 Left Gonzalez cluster -Time 15:26 -Correct Patient Yes -Correct Side, Site, Position Yes -Procedure Performed No -Post Debridement (cm) - Length 7.0 -Post Debridement (cm) - Width 6.5 -Post Debridement (cm) - Depth 0.1 -Total Square (Post) (cm) 45.50 -Area of Debridement (cm) - Length 7.0 -Area of Debridement (cm) - Width 6.5 -Total Square (Area) (cm) 45.50 -Tunneling No -Undermining/Tunneling No -Circular Undermining No -Wound/Ulcer Outcome Not Healed Pain Scale: 0-10 Numeric Is Patient Pain Free? Yes - Nurse 3 - General Ulcer D/C NN Start: 10/31/24 14:49 Freq: Status: Active Protocol: Activity Type Activity Date Activity User E-sign Co-sign Detail Recorded Client Recorded Date Recorded By Document 10/31/24 15:34 KW [id number] 10/31/24 15:35 KW Document 11/02/24 08:23 ML [id number] 11/02/24 08:25 ML 10/31/24 11/02/24 15:34 08:23 Wound Care Center Nurse 3 #1 Left Gonzalez cluster -Wound Comment(s) no dressings applied LLE -Multi-Layered Wrap Application Unna Boot - Unna Boot - Left Left -Unna- Left (Qty applied) 1 1 Pain Scale: 0-10 Numeric Is Patient Pain Free? Yes Yes - Visit Discharge Discharge Condition Stable Ambulatory Status Ambulatory,Cane Transportation Private Auto Medication Reconcilliation completed & No provided to patient/care provider Clinical Summary of Care Provided Yes Charges/Coding Visit Charges Office Visits / Consults: [id number] OV L3 Est 20min Assessment/Plan Assessment/Plan (1) Venous stasis ulcer of left lower leg with edema of left lower leg: CODE(S): I83.029 - Varicose veins of left lower extremity with ulcer of unspecified site; I83.892 - Varicose veins of left lower extremity with other complications; L97.929 - Non-pressure chronic ulcer of unspecified part of left lower leg with unspecified severity; R60.0 - Localized edema (2) Venous stasis dermatitis of both lower extremities: CODE(S): I87.2 - Venous insufficiency (chronic) (peripheral) (3) Right leg swelling: CODE(S): M79.89 - Other specified soft tissue disorders (4) Left leg swelling: CODE(S): M79.89 - Other specified soft tissue disorders (5) Dependent edema: CODE(S): R60.9 - Edema, unspecified (6) Primary hyperparathyroidism: CODE(S): E21.0 - Primary hyperparathyroidism (7) Cancer of prostate with intermediate recurrence risk (stage T2b-c or Ramon 7 or PSA 10-20): CODE(S): C61 - Malignant neoplasm of prostate (8) Hypertension: CODE(S): I10 - Essential (primary) hypertension (9) Gastric reflux: CODE(S): K21.9 - Gastro-esophageal reflux disease without esophagitis (10) High cholesterol: CODE(S): E78.00 - Pure hypercholesterolemia, unspecified (11) Gout: CODE(S): M10.9 - Gout, unspecified (12) Ambulates with cane: CODE(S): Z99.89 - Dependence on other enabling machines and devices (13) Arthritis: CODE(S): M19.90 - Unspecified osteoarthritis, unspecified site (14) Cancer: CODE(S): C80.1 - Malignant (primary) neoplasm, unspecified (15) Diverticulosis: CODE(S): K57.90 - Diverticulosis of intestine, part unspecified, without perforation or abscess without bleeding (16) S/P TURP (status post transurethral resection of prostate): CODE(S): Z90.79 - Acquired absence of other genital organ(s) (17) History of knee surgery: CODE(S): Z98.890 - Other specified postprocedural states (18) History of back surgery: CODE(S): Z98.890 - Other specified postprocedural states PLAN: Plan This is a 79-year-old moderately obese male with a history of prostate cancer, treated with radiation. He is not active, and spends long hours each day sitting in idle fashion. He also sleeps in a chair due to back problems. As a result, the patient developed chronic swelling and edema in his lower extremities, with skin changes of venous stasis dermatitis and an ulceration on the left pretibial surface. A lengthy discussion has been undertaken with the patient as to the appropriate means of conservative treatment relative to his lower extremity swelling and venous stasis manifestations. The patient has been advised to sleep on a flat surface at night, such that his legs are level with his heart, or higher. He has also been advised to elevate his lower extremities as much as possible, even during daytime hours. Prolonged idle sitting has been discouraged. Activity has been encouraged, though the patient is not likely to significantly enhance his activity level. We are to continue compression to both lower extremities by means of Unna boot compression wraps, which will be reapplied twice weekly. The patient is to return in 1 week for reevaluation. Ultimately, the patient will require long-term alteration in his daily habits, and a means of long-term compression. As a result, circumferential measurements have been documented, and will be sent to [facility] [place] for CircAid Velcro compression garments. The patient is to return in 1 week for reevaluation. Total time: 26 minutes
[2024-11-07 10:51] VITALS: BP 174/87; PULSE 65; RESP 18; TEMP 36.8
--- NOTE | 2024-11-08 08:55 | WC ---
PHOTO 11/07/24 LT GR
[2024-11-09 10:41] VITALS: BP 157/97; PULSE 73; RESP 18; TEMP 36.6
--- NOTE | 2024-11-11 18:13 | PCM.WC.HP ---
History of Present Illness Date of Service: 11/07/24 Chief Complaint: Bilateral lower extremity swelling and dependent edema; bilateral lower extremity venous stasis dermatitis; venous stasis ulceration of the left lower extremity History of Wound: This is a 79-year-old male who presented with chronic swelling and edema in his lower extremities bilaterally. The patient noticed the development of a large blister on the left pretibial surface approximately 1 month prior to presentation, which subsequently burst spontaneously, resulting in a large ulceration. The patient had been using Xeroform topically as well as an ABD. A noninvasive lower extremity arterial study performed on March 13, 2024, revealed no evidence of significant lower extremity arterial occlusive disease. The patient suffers from chronic low back problems. As a result, he sleeps in a chair each night. He spends long hours each day in an idle sitting position. He stated that he sits and watches television at least 6 hours each day. He is not very active, and requires a cane for ambulation. He does not smoke. He is not diabetic. He does have a history of prostate adenocarcinoma, for which he was treated with radiation therapy 2 years ago. [facility] Medical History Dependent edema Diverticulosis Venous stasis ulcer of left lower leg with edema of left lower leg Venous stasis dermatitis of both lower extremities Left leg swelling Right leg swelling Anxiety Cancer Low iron Back pain Syncope Former smoker Vertigo Malignant melanoma of skin Nocturia Urinary urgency BPH (benign prostatic hyperplasia) Elevated PSA Primary hyperparathyroidism Vitamin D deficiency Arthritis Wears dentures Wears glasses Ambulates with cane Gout Bladder disease High cholesterol Gastric reflux Non-smoker Leg cramps Hypertension Home Medications Medication Instructions Recorded Last Taken Type amlodipine 10 mg tablet 10 mg PO DAILY 03/19/21 11/20/22 History atorvastatin 20 mg tablet 20 mg PO QHS 03/19/21 Unknown History losartan 100 mg tablet 100 mg PO DAILY 03/19/21 11/20/22 History metoprolol succinate 100 mg 100 mg PO BID 03/19/21 11/20/22 History tablet,extended release 24 hr omeprazole 40 mg capsule,delayed 40 mg PO DAILY 03/19/21 11/20/22 History release calcium citrate 500 mg PO QDAY 02/24/24 Unknown History cholecalciferol (vitamin D3) 50 100 mcg PO QDAY 07/14/24 Unknown History mcg (2,000 unit) capsule mecobalamin (vitamin B12) 1,000 1,000 mcg PO QDAY 07/14/24 Unknown History mcg chewable tablet acetaminophen 500 mg tablet 500 mg PO Q6H PRN fever or pain 10/24/24 Unknown History (Tylenol Extra Strength) furosemide 20 mg tablet 20 mg PO DAILY 10/26/24 10/26/24 History Allergy/AdvReac Type Severity Reaction Status Date / Time Penicillins (PCN) Allergy pass out Verified 10/26/24 09:07 Surgical History S/P TURP (status post transurethral resection of prostate) History of knee surgery History of back surgery Social History Smoking Status: Former smoker alcohol intake: former substance use type: does not use what type of physical activity do you participate in: none Physical Exam Const alert, oriented x3, no apparent distress and well nourished Constitutional Narrative: The patient's BMI is 35.0. General Appearance: cooperative, comfortable, well kempt and well developed Orientation / Consciousness: awake, oriented to person, oriented to place and oriented to time Exam Limitations: no limitations HEENT normocephalic and head/scalp atraumatic Head and Scalp: normal to inspection, normocephalic and atraumatic Face and Sinus: normal facial exam Nose: external nose normal External Ear: external ears normal Eyes EOMs intact bilaterally General Eye: normal appearance of both eyes Resp normal respiratory effort, normal air movement, no retractions and no use of accessory muscles Effort and Inspection: able to speak in complete sentences Skin Wound Narrative: Slight swelling and edema are noted in the patient's lower extremities bilaterally. Mild venous stasis dermatitis is noted in the gaiter areas bilaterally, though improved since the patient's last visit. Lipodermatosclerosis and hyperpigmentation are noted bilaterally as well. [place] phlebectatica is noted near the medial malleoli bilaterally. The large venous stasis ulceration noted on the left pretibial surface is now completely healed and epithelialized. There is no sign of infection or cellulitis. Neuro oriented x3, CN's II-XII intact bilaterally, moves all extremities, no focal motor deficits and no sensory deficits noted Sensorium / Orientation: awake, alert, oriented to person, oriented to place and oriented to time Speech: speech normal Psych Appearance: grossly normal and appropriate Attitude: calm Activity / Motor Behavior: appropriate eye contact Speech: normal speech Mood & Affect: euthymic mood Thought Process: normal thought process Thought Content: normal thought content Attention / Concentration: attention grossly intact Debridement Note Debridement Note No debridement was completed: No debridement was completed today (There are no open wounds or ulcerations.) Post-Debridement Measurements and Additional Note: Post-Debridement Measurements/Treatment - Nurse 1 - General Ulcer Assessment Start: 10/31/24 14:49 Freq: Status: Active Protocol: [facility] Activity Type Activity Date Activity User E-sign Co-sign Detail Recorded Client Recorded Date Recorded By Document 10/31/24 14:49 [facility] [id number] 10/31/24 15:03 [facility] Document 11/02/24 08:23 ML [id number] 11/02/24 08:25 ML Document 11/07/24 10:51 KW [id number] 11/07/24 10:58 KW Document 11/09/24 10:41 KW [id number] 11/09/24 10:44 KW 10/31/24 11/02/24 11/07/24 14:49 08:23 10:51 - Today's Visit Information Type of service Follow-up Visit Nurse-only Follow-up Visit (Physician/EXTRACTOR AND WRINGER OPERATOR Visit (Physician/EXTRACTOR AND WRINGER OPERATOR ) ) Arrival Mode Ambulatory Ambulatory,Cane Ambulatory,Cane Transfer Assistance None Patient Identification Verified (Name & Yes Yes Yes ) Patient Requires Transmission-Based No No Precautions Vital Signs Temperature (97.8 F-99.1 F) 98.1 F 97.2 F L 98.3 F Temperature Source Temporal Temporal Temporal Pulse Rate (60-100) 62 61 65 Pulse Location Monitor Monitor Monitor Respiratory Rate (12-18) 18 15 18 Respiratory rate source Observation Observation Observation Oxygen Delivery Method Room Air Room Air Blood Pressure (90/60-120/80) 127/57 H 137/64 H 174/87 H Blood Pressure Mean 80 88 116 Source Monitor Monitor Monitor Position Sitting Supine Semi-Fowlers Blood Pressure Location Right Arm Right Arm Left Arm History Since Last Visit- (Skip if this is Patient's initial visit) Have you changed medications since your No No No last visit? Any new allergies or adverse reactions No No No Had a fall/change in ADL's that may No No No increase risk of falls Signs or symptoms of abuse and/or No No No neglect since last visit Have you been in the hospital since your No No last visit? Has dressing in place as prescribed Yes Yes Yes Has compression in place as prescribed Yes Yes Yes Has offloadiing in place as prescribed N/A N/A N/A Experienced any changes in pain level or No No No management Left Footwear Diabetic Shoe Regular Shoe Right Footwear Diabetic Shoe Regular Shoe Pain Scale: 0-10 Numeric Is Patient Pain Free? Yes Yes Yes Teaching: Wound Center compression application -Person Taught -Teaching Method -Response to teaching Compression -Person Taught -Teaching Method -Response to teaching 11/09/24 10:41 WC - Today's Visit Information Type of service Nurse-only Visit Arrival Mode Ambulatory,Cane Transfer Assistance Patient Identification Verified (Name & Yes ) Patient Requires Transmission-Based Precautions Vital Signs Temperature (97.8 F-99.1 F) 97.9 F Temperature Source Temporal Pulse Rate (60-100) 73 Pulse Location Monitor Respiratory Rate (12-18) 18 Respiratory rate source Observation Oxygen Delivery Method Room Air Blood Pressure (90/60-120/80) 157/97 H Blood Pressure Mean 117 Source Monitor Position Semi-Fowlers Blood Pressure Location Left Arm History Since Last Visit- (Skip if this is Patient's initial visit) Have you changed medications since your No last visit? Any new allergies or adverse reactions No Had a fall/change in ADL's that may No increase risk of falls Signs or symptoms of abuse and/or No neglect since last visit Have you been in the hospital since your No last visit? Has dressing in place as prescribed No Has compression in place as prescribed Yes Has offloadiing in place as prescribed N/A Experienced any changes in pain level or No management Left Footwear Regular Shoe Right Footwear Regular Shoe Pain Scale: 0-10 Numeric Is Patient Pain Free? Yes Teaching: Wound Center compression application -Person Taught Patient -Teaching Method Discussion, Demonstration -Response to teaching Return Demonstration, Verbalize Understanding Compression -Person Taught Patient -Teaching Method Discussion, Demonstration, Handout -Response to teaching Verbalize Understanding - Nurse 1 - General Ulcer Measurement Start: 10/31/24 14:49 Freq: Status: Active Protocol: Activity Type Activity Date Activity User E-sign Co-sign Detail Recorded Client Recorded Date Recorded By Document 10/31/24 14:49 BM [id number] 10/31/24 15:03 [facility] Document 11/07/24 10:51 KW [id number] 11/07/24 10:58 KW 10/31/24 11/07/24 14:49 10:51 Wound Center Nurse 1 #1 Left Gonzalez cluster -Combined with other wound No -Current Size (cm) - Length 0.1 -Current Size (cm) - Width 0.1 -Current Size (cm) - Depth 0.1 -Total Square Cm 0.01 -Date of Last Picture (Recall this 10/31/24 field) -Photo Taken Yes -Epithelialization Medium 34-66% -Tunneling No -Undermining/Tunneling No -Circular Undermining No -Exudate Amt Medium None Present -Exudate Type Serosanguineous -Wound Margin Flat & Intact -Granulation Amt Large (67-100%) -Granulation Quality [place] -Slough/Fibrin Yes -Necrosis Amt Small (1-33%) -Necrotic Tissue Type Adherent Slough -Texture (Landy-wound Skin Appearance) Assessed, Assessed Scarring -Moisture (Landy-wound Skin Appearance) Assessed,Dry/ Assessed Scaly -Color (Landy-wound Skin Appearance) Assessed Assessed, Hemosiderin Staining -Temperature (Landy-wound Skin No Abnormality No Abnormality Appearance) (Pt Warm) (Pt Warm) -Tenderness on Palpation (Landy-wound No No Skin Appearance) -Ulcer Cleansing Soap and Water Soap and Water -Foul Odor after Cleansing No No -Anesthetic Used 5% Lidocaine Gel Lower Limb Edema Present Yes Right Calf (cm) 42 Right Ankle (cm) 25.5 Left Calf (cm) 40.9 38 Left Ankle (cm) 25.2 23.3 WC - Nurse 2 - General Ulcer CM Notes Start: 10/31/24 14:49 Freq: Status: Active Protocol: Activity Type Activity Date Activity User E-sign Co-sign Detail Recorded Client Recorded Date Recorded By Document 10/31/24 15:26 DS [id number] 10/31/24 15:31 DS Document 11/07/24 11:32 DS [id number] 11/07/24 11:32 DS 10/31/24 11/07/24 15:26 11:32 Wound Center Nurse 2 #1 Left Gonzalez cluster -Time 15:26 11:32 -Correct Patient Yes Yes -Correct Side, Site, Position Yes Yes -Procedure Performed No No -Post Debridement (cm) - Length 7.0 -Post Debridement (cm) - Width 6.5 -Post Debridement (cm) - Depth 0.1 -Total Square (Post) (cm) 45.50 -Area of Debridement (cm) - Length 7.0 -Area of Debridement (cm) - Width 6.5 -Total Square (Area) (cm) 45.50 -Tunneling No -Undermining/Tunneling No -Circular Undermining No -Wound/Ulcer Outcome Not Healed Healed- Epithelialized Pain Scale: 0-10 Numeric Is Patient Pain Free? Yes Yes - Nurse 3 - General Ulcer D/C NN Start: 10/31/24 14:49 Freq: Status: Active Protocol: Activity Type Activity Date Activity User E-sign Co-sign Detail Recorded Client Recorded Date Recorded By Document 10/31/24 15:34 KW [id number] 10/31/24 15:35 KW Document 11/02/24 08:23 ML [id number] 11/02/24 08:25 ML Document 11/07/24 11:53 KW [id number] 11/07/24 11:54 KW Document 11/09/24 10:41 KW [id number] 11/09/24 10:44 KW 10/31/24 11/02/24 11/07/24 15:34 08:23 11:53 Wound Care Center Nurse 3 #1 Left Gonzalez cluster -Wound Comment(s) no dressings no dressing applied applied LLE -Lotion applied to leg before Yes compression wrap -Multi-Layered Wrap Application Unna Boot - Unna Boot - Left Left -Tubular Bandage Double Layer -Size of Tubigrip Used Size E -Size E ($) 2 -Other -Unna- Left (Qty applied) 1 1 Pain Scale: 0-10 Numeric Is Patient Pain Free? Yes Yes Yes - Visit Discharge Discharge Condition Stable Stable Ambulatory Status Ambulatory,Cane Ambulatory,Cane Transportation Private Auto Private Auto Medication Reconcilliation completed & No No provided to patient/care provider Clinical Summary of Care Provided Yes Yes 11/09/24 10:41 Wound Care Center Nurse 3 #1 Left Gonzalez cluster -Wound Comment(s) circaid education LLE -Lotion applied to leg before compression wrap -Multi-Layered Wrap Application -Tubular Bandage -Size of Tubigrip Used -Size E ($) -Other pt circaid -Unna- Left (Qty applied) Pain Scale: 0-10 Numeric Is Patient Pain Free? Yes WC - Visit Discharge Discharge Condition Stable Ambulatory Status Ambulatory,Cane Transportation Private Auto Medication Reconcilliation completed & No provided to patient/care provider Clinical Summary of Care Provided Yes Charges/Coding Visit Charges Office Visits / Consults: [id number] OV L3 Est 20min Assessment/Plan Assessment/Plan (1) Venous stasis ulcer of left lower leg with edema of left lower leg: CODE(S): I83.029 - Varicose veins of left lower extremity with ulcer of unspecified site; I83.892 - Varicose veins of left lower extremity with other complications; L97.929 - Non-pressure chronic ulcer of unspecified part of left lower leg with unspecified severity; R60.0 - Localized edema (2) Venous stasis dermatitis of both lower extremities: CODE(S): I87.2 - Venous insufficiency (chronic) (peripheral) (3) Right leg swelling: CODE(S): M79.89 - Other specified soft tissue disorders (4) Left leg swelling: CODE(S): M79.89 - Other specified soft tissue disorders (5) Dependent edema: CODE(S): R60.9 - Edema, unspecified (6) Primary hyperparathyroidism: CODE(S): E21.0 - Primary hyperparathyroidism (7) Cancer of prostate with intermediate recurrence risk (stage T2b-c or [place] 7 or PSA 10-20): CODE(S): C61 - Malignant neoplasm of prostate (8) Hypertension: CODE(S): I10 - Essential (primary) hypertension (9) Gastric reflux: CODE(S): K21.9 - Gastro-esophageal reflux disease without esophagitis (10) High cholesterol: CODE(S): E78.00 - Pure hypercholesterolemia, unspecified (11) Gout: CODE(S): M10.9 - Gout, unspecified (12) Ambulates with cane: CODE(S): Z99.89 - Dependence on other enabling machines and devices (13) Arthritis: CODE(S): M19.90 - Unspecified osteoarthritis, unspecified site (14) Cancer: CODE(S): C80.1 - Malignant (primary) neoplasm, unspecified (15) Diverticulosis: CODE(S): K57.90 - Diverticulosis of intestine, part unspecified, without perforation or abscess without bleeding (16) S/P TURP (status post transurethral resection of prostate): CODE(S): Z90.79 - Acquired absence of other genital organ(s) (17) History of knee surgery: CODE(S): Z98.890 - Other specified postprocedural states (18) History of back surgery: CODE(S): Z98.890 - Other specified postprocedural states PLAN: Plan This is a 79-year-old moderately obese male with a history of prostate cancer, treated with radiation. He is not active, and spends long hours each day sitting in idle fashion. He also sleeps in a chair due to back problems. As a result, the patient developed chronic swelling and edema in his lower extremities, with skin changes of venous stasis dermatitis, and an ulceration on the left pretibial surface. As a result of conservative treatment measures, the ulceration on the patient's left pretibial surface is now completely healed and epithelialized. A lengthy discussion has been undertaken with the patient as to the appropriate means of conservative treatment relative to his lower extremity swelling and venous stasis manifestations. These are measures which will be warranted for the long-term. The patient has been advised to sleep on a flat surface at night, such that his legs are level with his heart, or higher. He has also been advised to elevate his lower extremities as much as possible, even during daytime hours. Prolonged idle sitting has been discouraged. Activity has been encouraged, though the patient is not likely to significantly enhance his activity level. We are to continue compression to both lower extremities by means of double Tubigrip's for the short-term. These are to be donned on a daily basis, upon awakening each morning. The patient's lower extremity dimensions have been documented, and will be sent to [facility] [place] an effort to obtain CircAid Velcro compression garments for the patient's long-term use. The patient is to return in 1 to 2 weeks upon receipt of his Velcro compression garments, to assure that he is able to use them properly. It is anticipated that he will then be discharged. Total time: 25 minutes
== END 2024-11-14 09:05 | disposition home or self-care (01) ==
LOC: WC 11:30
PROVIDERS: PCP Nurse Practitioner Family; Referring Provider Nurse Practitioner Family; Visit Provider Surgery
DX: I83.028 Varicose veins of left lower extremity with ulcer other part of lower leg (principal); L97.829 Non-pressure chronic ulcer of other part of left lower leg with unspecified severity; I87.2 Venous insufficiency (chronic) (peripheral); I10 Essential (primary) hypertension; E78.00 Pure hypercholesterolemia, unspecified; M10.9 Gout, unspecified; E21.0 Primary hyperparathyroidism; R60.0 Localized edema; M19.90 Unspecified osteoarthritis, unspecified site; K21.9 Gastro-esophageal reflux disease without esophagitis; Z79.899 Other long term (current) drug therapy; Z85.46 Personal history of malignant neoplasm of prostate; Z92.3 Personal history of irradiation; Z87.19 Personal history of other diseases of the digestive system
CPT/HCPCS: 29580; 99211; 99213; G0463

== ENCOUNTER → 2024-12-06 | Outpatient (CLI) | payer MEDICARE, SELFPAY ==
--- NOTE | 2024-12-06 14:14 | MRI_ITS ---
PROCEDURE: SPINE LUMBAR (ROUTINE) 12/06/2024 REASON FOR EXAM: INTERVERTEBRAL DISC DEGENERATION, LUMBOSACRAL REGION TECHNIQUE: SPINE LUMBAR (ROUTINE) COMPARISON: Unremarkable. FINDINGS: Vertebrae: Preserved in height and signal. Alignment: Anterolisthesis L4 on L5 by 2 mm. Conus Medullaris: Unremarkable. L1-2: No foraminal or canal stenosis. L2-3: No foraminal or canal stenosis. L3-4: Status post posterior fusion. Facet joint arthropathy. Mild inferior bilateral foramina stenosis. Mild canal stenosis. L4-5: Disc desiccation. Status post posterior fusion. Moderate to severe right and mild left foramina stenosis. Status post laminectomies L5-S1: No foraminal or canal stenosis. Sacrum: Unremarkable. MRI/Spine Lumbar (Routine) IMPRESSION: Postsurgical changes without significant foraminal or canal stenosis. Reading Location: [id number]
== END | disposition home or self-care (01) ==
LOC: MRI 14:09
PROVIDERS: PCP Nurse Practitioner Family; Referring Provider Anesthesiology Pain Medicine; Visit Provider Anesthesiology Pain Medicine
DX: M51.372 Other intervertebral disc degeneration, lumbosacral region with discogenic back pain and lower extremity pain (principal)
CPT/HCPCS: 72148

== ENCOUNTER → 2024-12-29 | Outpatient (CLI) | payer MEDICARE, SELFPAY ==
[2024-12-29 17:44] LABS: Hematocrit 51.0 % (40-54); Hemoglobin 16.7 g/dL (13.0-16.5); Immature Granulocytes Count 0.050 X10^3/uL (0.0-0.0); Mean Corp Hgb Conc 32.7 g/dL (32-36); Mean Corpuscular Volume 94.4 fL (80-94); Mean Platelet Vol. 9.5 fl (6.2-12.0); NRBC Flagged by Analyzer 0 % (0-5); Platelet Count 141 K/mm3 (150-450); RBC Distribution Width CV 12.7 % (11.6-14.6); RBC Distribution Width SD 44.3 fl (35.1-43.9); Red Blood Count 5.40 M/mm3 (4.6-6.2); White Blood Count 5.3 K/mm3 (4.4-11.0)
[2024-12-29 18:27] LABS: AST(SGOT) 16 U/L (<=37); Alanine Aminotransfer ALT/SGPT 11 U/L (<=46); Albumin, Serum 4.4 g/dL (3.4-4.8); Alkaline Phosphatase 82 U/L (40-129); Anion Gap 12 (5-15); BUN 17 mg/dL (4-19); BUN/Creat Ratio 18.0 RATIO (10-20); Calcium,Total 11.0 mg/dL (7.6-11.0); Carbon Dioxide 25.8 mmol/L (21.0-32.0); Chloride 103 mmol/L (98-108); Cholesterol 114 mg/dL (<=200); Globulin 3.0 g/dL (2.2-4.2); Glucose 104 mg/dL (70-99); Low Density Lipoprotein Calc. 47 mg/dL; Potassium 4.3 mmol/L (3.3-5.1); Triglycerides 69 mg/dL; Very Low Density Lipoprotein 14 mg/dL (5-40); cholesterol:hdl ratio screen 2.15
[2024-12-30 00:33] LABS: Creatinine, Urine (random) 88.00 mg/dL (39.00-259.00); Microalbumin,Random Urine 120.0 mg/L (<20 mg/L)
== END | disposition home or self-care (01) ==
PROVIDERS: PCP Nurse Practitioner Family; Referring Provider Nurse Practitioner Family; Visit Provider Nurse Practitioner Family
DX: I10 Essential (primary) hypertension (principal); E78.5 Hyperlipidemia, unspecified; R73.03 Prediabetes
CPT/HCPCS: 36415; 80053; 80061; 82043; 82570; 84443; 85025

== ENCOUNTER → 2025-02-01 | Outpatient (CLI) | payer MEDICARE, SELFPAY ==
[2025-02-01 12:49] LABS: PSA,Total- Diagnostic 0.26 ng/mL (0.00-4.00)
== END | disposition home or self-care (01) ==
LOC: LAB 11:49
PROVIDERS: PCP Nurse Practitioner Family; Referring Provider Urology; Visit Provider Urology
DX: C61 Malignant neoplasm of prostate (principal)
CPT/HCPCS: 36415; 84153